=== PATIENT | male | born 1960 | race Caucasian/White ===

== ENCOUNTER 2016-08-11 21:05 | Inpatient (IN) | payer MEDICAID ==
[2016-08-11 21:33] LABS: % IMMATURE GRANULYOCYTES 0.3 % (0.0-1.1); ABSOLUTE IMMATURE GRANULOCYTES 0.03 10^3/uL (0.00-0.10); ADD DIFF? NO; ADD MORPH? NO; ADD SCAN? NO; ATYPICAL LYMPHOCYTE FLAG 20 (0-99); FRAGMENT RBC FLAG 0 (0-99); HEMATOCRIT 51.9 % (40.0-51.0); HEMOGLOBIN 17.7 g/dL (13.7-17.5); LEFT SHIFT FLG 0 (0-99); LIPEMIA HEMOLYSIS FLAG 90 (0-99); MEAN CELL HEMOGLOBIN 32.8 pg (27.9-34.1); MEAN CELL HEMOGLOBIN CONCENTR. 34.1 g/dL (32.4-36.7); MEAN CELL VOLUME 96.3 fL (81.5-99.8); MEAN PLATELET VOLUME 9.7 fL (8.7-11.7); PLATELET CLUMPS FLAG 0 (0-99); PLATELET COUNT 76 10^3/uL (150-400); RED BLOOD CELL COUNT 5.39 10^6/uL (4.40-6.38); RED CELL DISTRIBUTION WIDTH 13.1 % (11.5-15.2)
--- NOTE | 2016-08-11 22:03 | EDPHY ---
H & P Stated Complaint: SOB, cough, difficulty breathing Time Seen by Provider: 08/11/16 21:50 HPI/ROS: Chief Complaint: Short of breath, cough HPI: 56-year-old male presenting with 2 weeks of cough and shortness of breath. He has also been having some difficulty swallowing solids but is 0 tolerating liquids. He has had some subjective fevers and chills. Coughing yellow sputum. Increasingly short of breath and fatigue. Does not have a history of the same. Has history of smoking. No nausea or vomiting. No chest pain. No abdominal pain. Patient is ROS: 10 point Review of Systems is negative except as noted in the HPI. PMH: Chronic back pain secondary to lumbar cervical fractures Medications: Morphine Oxycodone Lyrica Amitriptyline Allergies: No known drug allergies Social History: Positive for smoking, daily alcohol, no recreational drug use Family History: non-contributory Physical Exam: Gen: Awake, Alert, uncomfortable appearing HEENT: Nose: no rhinorrhea Eyes: PERRLA, EOMI Mouth: Moist mucosa Neck: Supple, no JVD Chest: nontender, diffuse expiratory wheezing with right-sided crackles at the lung base Heart: S1, S2 normal, no murmur Abd: Soft, non-tender, no guarding Back: no CVA tenderness, no midline tenderness Ext: no edema, non-tender Skin: no rash Neuro: CN II-XII intact, Sensation grossly intact, Strength 5/5 in bilateral upper and lower extremities - Personal History Current Tetanus/Diphtheria Vaccine: Yes Current Tetanus Diphtheria and Acellular Pertussis (TDAP): Yes Tetanus Vaccine Date: 2014 - Medical/Surgical History Hx Asthma: No Hx Chronic Respiratory Disease: No Hx Diabetes: No Hx Cardiac Disease: No Hx Renal Disease: No Hx Cirrhosis: No Hx Alcoholism: No Hx HIV/AIDS: No Hx Splenectomy or Spleen Trauma: No Other PMH: chronic back and right hip pain, hypoglycemic - Social History Smoking Status: Current every day smoker Constitutional: Initial Vital Signs Temperature (C) 36.5 C 08/11/16 21:19 Heart Rate 98 08/11/16 21:19 Respiratory Rate 20 08/11/16 21:19 Blood Pressure 139/99 H 08/11/16 21:19 O2 Sat (%) 79 L 08/11/16 21:19 O2 Delivery Mode Nasal Cannula O2 (L/minute) 5 Allergies/Adverse Reactions: No Known Allergies Allergy (Verified 08/11/16 21:20) Home Medications: Medication Instructions Recorded Amoxicillin/Clavulanate Pot 875 mg PO BID #14 tab 04/06/15 [Augmentin 875Mg] AMITRIPTYLINE HCL [Amitriptyline 100 mg PO HS 08/22/15 100 mg] Cyclobenzaprine [Flexeril] 10 mg PO TID PRN 08/22/15 Lidocaine 5% [Lidoderm 5%] 2 ea TD DAILY 08/22/15 Pregabalin [LYRICA] 100 mg PO TID 08/22/15 morphINE SR [Ms Contin/Oramorph] 15 mg PO BID 08/22/15 oxyCODONE HCL [Roxicodone] 5 - 10 mg PO Q4 PRN 08/22/15 Medical Decision Making - Diagnostics Imaging Results: Imaging Impressions Chest X-Ray 08/11/16 21:23 Impression: Suspect early right middle lobe and right lower lobe pneumonia. Imaging: I viewed and interpreted images myself ED Course/Re-evaluation: 56-year-old male with a right lower lobe and right middle lobe infiltrate, oxygen saturation 75% on room air and does desaturation on supplemental oxygen when he falls asleep here. He has got will be admitted for IV antibiotics. Will give him DuoNeb here. I have discussed with Dr. Hampton, hospitalist. She will admit to her service for further evaluation - Data Points Laboratory Results: Laboratory Results 08/11/16 21:00 08/11/16 21:00 08/11/16 08/11/16 21:00 21:00 WBC 9.12 10^3/uL 10^3/uL (3.80-9.50) RBC 5.39 10^6/uL 10^6/uL (4.40-6.38) Hgb 17.7 g/dL H g/dL (13.7-17.5) Hct 51.9 % H % (40.0-51.0) MCV 96.3 fL fL (81.5-99.8) MCH 32.8 pg pg (27.9-34.1) MCHC 34.1 g/dL g/dL (32.4-36.7) RDW 13.1 % % (11.5-15.2) Plt Count 76 10^3/uL L 10^3/uL (150-400) MPV 9.7 fL fL (8.7-11.7) Neut % (Auto) 42.6 % % (39.3-74.2) Lymph % (Auto) 49.6 % H % (15.0-45.0) [place] % (Auto) 6.9 % % (4.5-13.0) Eos % (Auto) 0.4 % L % (0.6-7.6) Baso % (Auto) 0.2 % L % (0.3-1.7) Nucleat RBC Rel Count 0.0 % % (0.0-0.2) Absolute Neuts (auto) 3.88 10^3/uL 10^3/uL (1.70-6.50) Absolute Lymphs (auto) 4.52 10^3/uL H 10^3/uL (1.00-3.00) Absolute Monos (auto) 0.63 10^3/uL 10^3/uL (0.30-0.80) Absolute Eos (auto) 0.04 10^3/uL 10^3/uL (0.03-0.40) Absolute Basos (auto) 0.02 10^3/uL 10^3/uL (0.02-0.10) Absolute Nucleated RBC 0.00 10^3/uL 10^3/uL (0-0.01) Immature Gran % 0.3 % % (0.0-1.1) Immature Gran # 0.03 10^3/uL 10^3/uL (0.00-0.10) Sodium 141 mEq/L mEq/L (134-144) Potassium 4.2 mEq/L mEq/L (3.5-5.2) Chloride 102 mEq/L mEq/L (97-110) Carbon Dioxide 24 mEq/l mEq/l (22-31) Anion Gap 15 mEq/L mEq/L (8-16) BUN 10 mg/dL mg/dL (7-23) Creatinine 0.8 mg/dL mg/dL (0.7-1.3) Estimated GFR > 60 Glucose 152 mg/dL H mg/dL (70-100) Calcium 8.8 mg/dL mg/dL (8.5-10.4) Departure - Departure Disposition: [facility] Acute Clinical Impression: Pneumonia Condition: Fair Referrals: Itzel Bernal [Primary Care Provider] - As per Instructions
[2016-08-11 22:18] LABS: ANION GAP 15 mEq/L (8-16); CALCIUM 8.8 mg/dL (8.5-10.4); CARBON DIOXIDE 24 mEq/l (22-31); CHLORIDE 102 mEq/L (97-110); CREATININE 0.8 mg/dL (0.7-1.3); GLOMERULAR FILTRATION RATE > 60; GLUCOSE 152 mg/dL (70-100); POTASSIUM 4.2 mEq/L (3.5-5.2); SODIUM 141 mEq/L (134-144)
[2016-08-11] MEDS ORDERED: IPRATROPIUM/ALBUTEROL 3 ML DEYVIAL ONE (22:21)
[2016-08-11] MEDS ORDERED: AZITHROMYCIN 250 MG TAB PO ONE (22:27)
[2016-08-11] MEDS ORDERED: IPRATROPIUM/ALBUTEROL 3 ML DEYVIAL IH ONE (22:30)
[2016-08-11] MEDS ORDERED: NS 1,000 ML IV ONE (22:40)
[2016-08-11] MEDS ORDERED: LORazepam 2 MG/ML INJ ONE (23:21)
[2016-08-11] MEDS ORDERED: LORazepam 2 MG/ML INJ IVP ONE (23:25)
[2016-08-11] MEDS ORDERED: ACETAMINOPHEN 325 MG TAB PO PRN (23:30)
[2016-08-11] MEDS ORDERED: ONDANSETRON DISINTEGRATING 4 MG TAB PO PRN (23:30)
[2016-08-11] MEDS ORDERED: ONDANSETRON 4 MG/2 ML VIAL IVP PRN (23:30)
[2016-08-11] MEDS ORDERED: ALBUTEROL 3 ML DEYVIAL IH PRN (23:38)
[2016-08-11 23:59] LABS: ALANINE AMINOTRANSFERASE 102 IU/L (21-72); ALBUMIN 4.5 g/dL (3.5-5.0); ALKALINE PHOSPHATASE 144 IU/L (38-126); ASPARTATE AMINOTRANSFERASE 133 IU/L (17-59); BILIRUBIN,TOTAL 0.9 mg/dL (0.1-1.4); BILIRUBIN-CONJUGATED 0.7 mg/dL (0.0-0.5); BILIRUBIN-UNCONJUGATED 0.2 mg/dL (0.0-1.1); ETHANOL SERUM 292 mg/dL (0-10); TOTAL PROTEIN 7.7 g/dL (6.3-8.2)
[2016-08-12] MEDS ORDERED: LORazepam 2 MG/ML INJ IVP PRN (00:10)
--- NOTE | 2016-08-12 00:21 | PDGENHP ---
History and Physical - Chief Complaint shortness of breath - History of Present Illness Patient is a 56-year-old male with a history of chronic pain syndrome with chronic opioid dependency, tobacco use, alcohol use who presents to the ED with complaint of shortness of breath and cough. Patient states symptoms started about 2 weeks ago, with cough and occasional dyspnea on exertion. However over the last for 4 days his symptoms acutely worsened, he felt significantly dyspneic at rest, cough became more productive and he felt generalized fatigue. In addition he reported some subjective fever and chills, as well as occasional episodes of nausea and vomiting (Nonbilious/nonbloody). His friend checked in on him 3 days ago, saw that he didn't look well and recommended he go to a PMD. She again checked in on him today and found him in respiratory distress, stating he felt he unable to breath, so she called EMS and he was transported to the [facility] ED. On arrival to the ED, he was afebrile, hemodynamically stable, but saturating at 70% on room air. CXR revealed early RML pneumonia. Labs showed hemoconcentrated CBC, normal BMP, elevated lactic acid. He was cultured and initiated on ceftriaxone and azithromycin. Over the course of his ED stay he became more somnolent, especially after ativan administration, so BIPAP was initiated with improvement in oxygenation. History Information - Allergies/Home Medication List Allergies/Adverse Reactions: No Known Allergies Allergy (Verified 08/11/16 21:20) Home Medications: AMITRIPTYLINE HCL [Amitriptyline 100 mg] 100 mg PO HS 08/22/15 [Last Taken 08/20] Cyclobenzaprine [Flexeril] 10 mg PO TID PRN 08/22/15 [Last Taken Unknown] Lidocaine 5% [Lidoderm 5%] 2 ea TD DAILY 08/22/15 [Last Taken 08/21/15] Pregabalin [LYRICA] 100 mg PO TID 08/22/15 [Last Taken 08/21/15] morphINE SR [Ms Contin/Oramorph] 15 mg PO BID 08/22/15 [Last Taken 08/22/15] oxyCODONE HCL [Roxicodone] 5 - 10 mg PO Q4 PRN 08/22/15 [Last Taken 08/21/15] I have personally reviewed and updated: family history, medical history, social history, surgical history - Past Medical History Additional medical history: chronic back pain after trauma in 1995. 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 Review of Systems ROS: 10pt was reviewed & negative except for what was stated in HPI & below Physical Exam Temp Pulse Resp BP Pulse Ox 36.5 C 98 18 111/77 92 08/11/16 21:19 08/12/16 00:00 08/12/16 00:00 08/12/16 00:00 08/12/16 00:00 O2 (L/minute) 5 Constitutional: appears nourished, uncomfortable Eyes: PERRL, anicteric sclera, EOMI Ears, Nose, Mouth, Throat: hearing normal, ears appear normal, no oral mucosal ulcers, dry mucous membranes Cardiovascular: no murmur, rub, or gallop, pulses symmetric bilaterally, tachycardia, No JVD, No edema Peripheral Pulses: 2+: dorsalis-pedis (R), dorsalis-pedis (L) Respiratory: expiratory wheeze, inspiratory crackles, bronchial breath sounds Gastrointestinal: normoactive bowel sounds, soft, non-tender abdomen, no palpable masses, No guarding, No rebound Genitourinary: no bladder fullness, no bladder tenderness Skin: warm, normal color, no rashes or abrasions, no fluctuance, no induration, No mottled Musculoskeletal: full muscle strength, no muscle tenderness, normal joint ROM, no joint effusions Neurologic: AAOx3, sensation intact bilaterally, CN II-XII Intact, No weakness, No numbness, No facial droop Psychiatric: interacting appropriately, not anxious, not encephalopathic, thought process linear Lab Data & Imaging Review 08/11/16 21:00 08/11/16 21:00 WBC 9.12 10^3/uL (3.80-9.50) 08/11/16 21:00 RBC 5.39 10^6/uL (4.40-6.38) 08/11/16 21:00 Hgb 17.7 g/dL (13.7-17.5) H 08/11/16 21:00 Hct 51.9 % (40.0-51.0) H 08/11/16 21:00 MCV 96.3 fL (81.5-99.8) 08/11/16 21:00 MCH 32.8 pg (27.9-34.1) 08/11/16 21:00 MCHC 34.1 g/dL (32.4-36.7) 08/11/16 21:00 RDW 13.1 % (11.5-15.2) 08/11/16 21:00 Plt Count 76 10^3/uL (150-400) L 08/11/16 21:00 MPV 9.7 fL (8.7-11.7) 08/11/16 21:00 Neut % (Auto) 42.6 % (39.3-74.2) 08/11/16 21:00 Lymph % (Auto) 49.6 % (15.0-45.0) H 08/11/16 21:00 [place] % (Auto) 6.9 % (4.5-13.0) 08/11/16 21:00 Eos % (Auto) 0.4 % (0.6-7.6) L 08/11/16 21:00 Baso % (Auto) 0.2 % (0.3-1.7) L 08/11/16 21:00 Nucleat RBC Rel Count 0.0 % (0.0-0.2) 08/11/16 21:00 Absolute Neuts (auto) 3.88 10^3/uL (1.70-6.50) 08/11/16 21:00 Absolute Lymphs (auto) 4.52 10^3/uL (1.00-3.00) H 08/11/16 21:00 Absolute Monos (auto) 0.63 10^3/uL (0.30-0.80) 08/11/16 21:00 Absolute Eos (auto) 0.04 10^3/uL (0.03-0.40) 08/11/16 21:00 Absolute Basos (auto) 0.02 10^3/uL (0.02-0.10) 08/11/16 21:00 Absolute Nucleated RBC 0.00 10^3/uL (0-0.01) 08/11/16 21:00 Immature Gran % 0.3 % (0.0-1.1) 08/11/16 21:00 Immature Gran # 0.03 10^3/uL (0.00-0.10) 08/11/16 21:00 VBG Lactic Acid 2.2 mmol/L (0.7-2.1) H 08/11/16 23:40 Sodium 141 mEq/L (134-144) 08/11/16 21:00 Potassium 4.2 mEq/L (3.5-5.2) 08/11/16 21:00 Chloride 102 mEq/L (97-110) 08/11/16 21:00 Carbon Dioxide 24 mEq/l (22-31) 08/11/16 21:00 Anion Gap 15 mEq/L (8-16) 08/11/16 21:00 BUN 10 mg/dL (7-23) 08/11/16 21:00 Creatinine 0.8 mg/dL (0.7-1.3) 08/11/16 21:00 Estimated GFR > 60 08/11/16 21:00 Glucose 152 mg/dL (70-100) H 08/11/16 21:00 Calcium 8.8 mg/dL (8.5-10.4) 08/11/16 21:00 Total Bilirubin 0.9 mg/dL (0.1-1.4) 08/11/16 21:00 Conjugated Bilirubin 0.7 mg/dL (0.0-0.5) H 08/11/16 21:00 Unconjugated Bilirubin 0.2 mg/dL (0.0-1.1) 08/11/16 21:00 AST 133 IU/L (17-59) H 08/11/16 21:00 ALT 102 IU/L (21-72) H 08/11/16 21:00 Alkaline Phosphatase 144 IU/L (38-126) H 08/11/16 21:00 Total Protein 7.7 g/dL (6.3-8.2) 08/11/16 21:00 Albumin 4.5 g/dL (3.5-5.0) 08/11/16 21:00 Ethyl Alcohol 292 mg/dL (0-10) H 08/11/16 21:00 Visualized and Interpreted Chest x-ray results: Yes Chest X-Ray results: infiltrate (in right middle lobe) Assessment & Plan Assessment: patient is a 56-year-old male with a history of chronic pain for which he is on chronic opioids, active tobacco use, heavy alcohol use, presents to the ED with 2 weeks of worsening cough and dyspnea. Evaluation reveals acute hypoxic respiratory failure likely due to right middle lobe community-acquired pneumonia. Plan: # acute hypoxic respiratory failure Likely provoked by acute pneumonia, however, underlying COPD exacerbation may also be contributing. Respiratory drive has also been depressed by benzo administration for treatment of etoh withdrawal symptoms. Oxygenation has stabilized with BIPAP supplementation. Will continue BIPAP, continue duonebs/ albuterol prn, start IV steroids and continue pneumonia treatment. Will check an AM abg to assess bipap response. # acute pneumonia CXR and patient's symptoms appear consistent with a community acquired pneumonia , however given patient's history of polysubstance use and the location of infiltrate, aspiration pneumonia is also a possibility. Will also check rapid flu swab, sputum culture. Cont Ertapenem and azithromycin. # chronic alcohol use Patient was not entirely forthcoming about the quantity of alcohol he uses daily , however, his friend at bedside informs me he has been recently trying to cut back and had been showing signs of withdrawal earlier in the day. ETOH level on presentation is 290 and he does appear tremulous and tachycardic. However, he has become significantly sedated with ativan 1 mg. Will monitor ciwa scores, dose ativan cautiously prn and supplement thiamine/folate/mvn. # transaminitis Likely related to acute on chronic alcohol use. However, will check hepatitis panel, abdominal US and continue to trend. # chronic pain with opioid dependence Patient reports chronic pain from a trauma in the distant past. He is currently prescribed long and short-acting opioids, as well as muscle relaxants and lyrica. Will need to confirm his home regimen, monitor for pain and dose as needed, pending respiratory status. # dispo: admit to inpatient service for > 2 [place] stay #gen: regular diet DVT ppx: lovenox Full code
[2016-08-12] MEDS: NICOTINE 14 MG/24 HR PATCH TD SCH ×2 (01:10→08:44)
[2016-08-12 01:55] LABS: PHENCYCLIDINE URINE BCH < 6 ng/ml (NEGATIVE); PHENCYCLIDINE URINE BCH NEGATIVE (NEGATIVE)
[2016-08-12 02:08] LABS: TETRAHYDROCANNABINOL URINE 356 ng/mL (NEGATIVE)
[2016-08-12 03:34] LABS: COLOR AMBER; LEUKOCYTE ESTERASE,URINE NEGATIVE (NEGATIVE); NITRITE,URINE NEGATIVE (NEGATIVE)
[2016-08-12 03:45] LABS: MUCUS 2+ /lpf (NONE-1+)
[2016-08-12] MEDS: methylPREDNISolone SOD SUCC 125 MG/2 ML VIAL IVP SCH ×3 (03:59→12:49)
[2016-08-12 04:14] LABS: ANION GAP 11 mEq/L (8-16); CALCIUM 8.3 mg/dL (8.5-10.4); CARBON DIOXIDE 24 mEq/l (22-31); CHLORIDE 106 mEq/L (97-110); CREATININE 0.7 mg/dL (0.7-1.3); GLOMERULAR FILTRATION RATE > 60; GLUCOSE 154 mg/dL (70-100); POTASSIUM 4.9 mEq/L (3.5-5.2); SODIUM 141 mEq/L (134-144)
[2016-08-12 04:25] LABS: TROPONIN I < 0.012 ng/mL (0-0.034)
[2016-08-12] MEDS: NS 1,000 ML IV SCH ×2 (04:46→14:55)
[2016-08-12 04:53] LABS: BASE EXCESS -2.2 mEq/L (-2.5-2.5); BICARBONATE 23 mEq/L (22-26); MEASURED OXYGEN SATURATION 94 % (92-95); PCO2 43 mmHg (34-38); PO2 77 mmHg (65-75); TCO2 24 mEq/L (23-27)
[2016-08-12 04:54] LABS: O2 CONCENTRATIION 40 % (0-100); P/F RATIO 193 RATIO
[2016-08-12 04:55] LABS: BIPAP YES
[2016-08-12] MEDS: IPRATROPIUM/ALBUTEROL 3 ML DEYVIAL IH SCH ×4 (04:56→20:40)
[2016-08-12] MEDS: chlordiazePOXIDE 25 MG CAP PO PRN ×2 (05:41→15:02)
[2016-08-12 05:48] LABS: % IMMATURE GRANULYOCYTES 0.5 % (0.0-1.1); ABSOLUTE IMMATURE GRANULOCYTES 0.02 10^3/uL (0.00-0.10); ADD DIFF? NO; ADD MORPH? NO; ADD SCAN? NO; ATYPICAL LYMPHOCYTE FLAG 0 (0-99); FRAGMENT RBC FLAG 0 (0-99); HEMATOCRIT 47.2 % (40.0-51.0); HEMOGLOBIN 15.9 g/dL (13.7-17.5); LEFT SHIFT FLG 0 (0-99); LIPEMIA HEMOLYSIS FLAG 80 (0-99); MEAN CELL HEMOGLOBIN 32.1 pg (27.9-34.1); MEAN CELL HEMOGLOBIN CONCENTR. 33.7 g/dL (32.4-36.7); MEAN CELL VOLUME 95.2 fL (81.5-99.8); MEAN PLATELET VOLUME 8.8 fL (8.7-11.7); PLATELET CLUMPS FLAG 10 (0-99); PLATELET COUNT 54 10^3/uL (150-400); RED BLOOD CELL COUNT 4.96 10^6/uL (4.40-6.38); RED CELL DISTRIBUTION WIDTH 12.9 % (11.5-15.2)
[2016-08-12 05:53] LABS: ALANINE AMINOTRANSFERASE 95 IU/L (21-72); ALBUMIN 4.1 g/dL (3.5-5.0); ALKALINE PHOSPHATASE 127 IU/L (38-126); ANION GAP 13 mEq/L (8-16); ASPARTATE AMINOTRANSFERASE 133 IU/L (17-59); BILIRUBIN,TOTAL 0.7 mg/dL (0.1-1.4); CALCIUM 8.3 mg/dL (8.5-10.4); CARBON DIOXIDE 24 mEq/l (22-31); CHLORIDE 106 mEq/L (97-110); CREATININE 0.7 mg/dL (0.7-1.3); GLOMERULAR FILTRATION RATE > 60; GLUCOSE 155 mg/dL (70-100); MAGNESIUM 1.4 mg/dL (1.6-2.3); POTASSIUM 4.8 mEq/L (3.5-5.2); SODIUM 143 mEq/L (134-144); TOTAL PROTEIN 6.9 g/dL (6.3-8.2)
[2016-08-12] MEDS: ERTAPENEM 1 GM in NS 100 ML IV SCH (08:44)
[2016-08-12] MEDS: MULTIVITAMINS 1 EACH TAB PO SCH (08:44)
[2016-08-12] MEDS: LORazepam 2 MG/ML INJ IVP PRN ×2 (08:44→17:25)
[2016-08-12] MEDS: AZITHROMYCIN IV 500 MG in D5W 250 ML IV SCH (08:44)
[2016-08-12] MEDS: FOLIC ACID 1 MG TAB PO SCH (08:44)
[2016-08-12] MEDS: THIAMINE HCL 100 MG TAB PO SCH (08:44)
[2016-08-12] MEDS ORDERED: ENOXAPARIN 40 MG/0.4 ML SYR SC SCH (09:00)
[2016-08-12] MEDS ORDERED: OXYCODONE IR PO PRN (09:50)
[2016-08-12] MEDS: VODKA 50 ML BOTTLE PO SCH ×3 (10:21→21:07)
[2016-08-12] MEDS: morphINE SR 30 MG TAB PO SCH ×2 (10:21→21:47)
[2016-08-12] MEDS: LIDOCAINE 5% 1 EA PATCH TD SCH (10:21)
--- NOTE | 2016-08-12 10:31 | HOSPPROG ---
Hospitalist Progress Note Assessment/Plan: DIAGNOSES: # ACUTE HYPOXEMIC RESP FAILURE # CAP # COPD EXACERBATION # ACUTE ALCOHOL WITHDRAWAL / ALCOHOLISM / SUSPECT VITAMIN DEFICIENCIES # MILD ALCOHOLIC HEPATITIS WITH NORMAL BILIRUBIN # CHRONIC PRESCRIBED NARCOTIC DEPENDENCE # ONGOING TOBACCO USE Overall stable from resp standpoint. Will need ongoing antibiotics and resp treatment. I have discussed EtOH at length with him, he does not feel he would be successful at quitting. It will therefore not be worth putting him thru the risks of withdrawal here. PLANS: -continue abx, steroids, bronchodilators -increase acivity as able -as he will not quit drinking, will begin to give him alcohol; for now continue CIWA scoring and benzo's until stabilized -thiamine -nicotine patch -continue his usual pain meds -I have discussed with him recommendations and options for stopping etoh, tobacco seen on multidisciplinary ICU rounds today Discussed in detail with Dr. Cornel Ramos SUBJECTIVE: Feels very anxious and tremulous, weak and tired No pain Mild shortness of breath still with some cough OBJECTIVE Vitals reviewed: overall stable without fever [employer], my review: sinus rhythm Exam: alert oriented moderately anxious, quite tremulous, not confused or hallucinating, pleasant and interacts normally skin warm dry color ok no jaundice resps mildly labored lungs severely diminished BSs heart regular abd soft nondistended nontender, bowel sounds present limbs warm, no edema iv site ok Objective: Vital Signs Temp Pulse Resp BP Pulse Ox 37.1 C 93 14 126/81 H 95 08/12/16 08:00 08/12/16 08:00 08/12/16 08:00 08/12/16 08:00 08/12/16 08:00 Laboratory Results 08/12/16 05:30 08/12/16 03:50 08/11/16 08/12/16 08/13/16 06:59 06:59 06:59 Intake Total 1569 Output Total 350 300 Balance 1219 -300 - Time Spent With Patient Time Spent with Patient: greater than 35 minutes Time Spent with Patient: Greater than 35 minutes spent on this patients care, greater than 50% of time spent counseling, educating, and coordinating care regarding the above mentioned plan. ICD10 Worksheet Patient Problems: Problems Problem Status Onset Pneumonia Acute
--- NOTE | 2016-08-12 13:11 | GCON ---
[f rep st] CONSULTATION PULMONARY CRITICAL CARE CONSULTATION DATE OF CONSULTATION: 08/12/2016 REASON FOR CONSULTATION: Pneumonia, alcohol withdrawal. HISTORY: The patient is a 56-year-old gentleman. He has a history of chronic alcohol abuse as well as tobacco abuse. He also has chronic pain syndrome and takes opiates. 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 Has 2 vans/bu ses that he travels with and lives out of these. He is based between [place] and [facility] y his report. He was admitted yesterday secondary to weakness. In the 3 or 4 days prior to admissi on, he had subjective fevers and chills, nausea and vomiting. He became more short of breath and we igor. He was unable to eat much. He drinks a pint of vodka a day, but with his symptoms, he was dr inking about half this amount. A friend found him yesterday weaker, more short of breath. EMS was called, and he was taken to the emergency department. Saturations on admission to the ED were appro priately in the 70s. Initial x-ray was underwhelming, but an early right middle lobe pneumonia coul d not be excluded. There was evidence of volume depletion. He was given Ativan in the ED with decr eased mental status. He was placed on BiPAP for a short time and admitted to the intensive care [facility]. PAST MEDICAL HISTORY: Remarkable for chronic pain. He apparently went into a ravine while riding a horse and was injured about 10 years ago and has had significant pain since. He is on chronic narc otics for this. He has a history of ongoing alcohol abuse as well as tobacco abuse. MEDICATIONS: Include sustained release morphine, Lyrica, p.r.n. oxycodone, Lidoderm patch, and carrie riptyline. SOCIAL HISTORY: He says he travels and lives out of his bus/vans. 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 He is initially from [place]. A previous and children are there. He has 1 sister. He drinks at least a pint of vodka per day, smokes a half-pack of cigarettes or more per day. Drug us e is denied. His primary care physician is Itzel Bernal in [place]. FAMILY HISTORY: Noncontributory. REVIEW OF SYSTEMS: Ten-point review of systems is negative except as mentioned above. He denies se izures or previous alcohol withdrawal. He has been seen in our emergency department dating back to November 2014, never for alcohol-related issues. He did have nausea and vomiting, with bronchitis and had elevated liver function studies at that time, February 2015. There is no history of heart dise ase. He denies a history of pancreatitis or significant GI problems. He has had inhalers in the [facility] but does not use these. He does not have known asthma or COPD. He denies kidney disease, thromb oembolic disease, etc. He recently bruised his leg loading equipment into his bus. PHYSICAL EXAMINATION: GENERAL: A gentleman who has a significant tremor but is in no acute distres s. An oxy mask is in place at 7 L. Saturations are 95%. Blood pressure is 125/80, heart rate 85 w ith sinus rhythm on the monitor. He is afebrile. Respiratory rate is 18. HEENT: Unremarkable for lymphadenopathy or thyromegaly. The throat is nontender. There is no evidence of pharyngitis. Th ere is no jugular venous distention. CHEST: Reveals somewhat distant breath sounds with bibasilar rales, fairly fine. There are no rhonchi, no significant wheezes at this time. HEART: Regular in rate and rhythm. There is a soft systolic murmur, no gallop. ABDOMEN: Soft, nontender. Bowel iqra nds are present. EXTREMITIES: Unremarkable for edema, cords, or tenderness. There is a bruise on the anterior right wolf. Otherwise, the skin is intact, without lesions or rash. NEUROLOGIC: Remar kable for a very marked, coarse tremor. Neurologic examination is otherwise nonfocal. He reports eq ual sensation to touch bilaterally. He is oriented x3 but somewhat agitated appearing and perhaps s lightly confused. DATABASE: Chest x-rays were reviewed. There may be some mild bibasilar infiltrates with these bein g more noticeable on the followup film compared to the admission film. Laboratory: White blood cell count is 4400, down from 9000 maximum. Platelets are 54,000 with a ma ximum of 76,000. Hematocrit is 47, down from 52. Arterial blood gas early this morning showed a pH of 7.35, pCO2 43, and PO2 77. He was on BiPAP at that time. Lactic acid was 2.2. Basic metabolic panel is within normal limits with the exception of a mildly elevated glucose of 155. Magnesium is low at 1.4, phosphorus normal. Bilirubin is normal. Liver function studies are mildly elevated wi th an AST of 133 and an ALT of 95. Lipase was elevated on admission at 783. Troponins were negativ e. Albumin is 4.1. Urinalysis was unremarkable. Urine tox screen was positive for opiates, THC. Blood alcohol was 292 on admission. Influenza A, b by PCR were negative. ASSESSMENT: 1. Alcohol withdrawal. This is secondary to chronic alcohol abuse. He was intoxicated on admissio n with a high blood alcohol of almost 300. Nausea and vomiting were probably secondary to alcoholic gastritis as well as mild pancreatitis. CIWA score remains high. He is on the CIWA protocol, on A tivan, not requiring Precedex. 2. Pneumonia. He appears to have bibasilar vague infiltrates associated with rales and hypoxia on admission. He may have an exacerbation of underlying COPD, but this does not appear to be very talat re at this time. He is on steroids and bronchodilator therapy as well as appropriate antibiotics. It is possible that this pneumonia represents an aspiration pneumonia/pneumonitis. He is on Invanz as well as azithromycin for atypical coverage. 3. Chronic obstructive pulmonary disease exacerbation. Please see the comments above, probably rel atively mild. He likely has mild underlying COPD secondary to chronic tobacco abuse of a half-pack of cigarettes or more per day. 4. History of chronic back pain secondary to injury, chronic narcotic therapy. 5. Deep vein thrombosis prophylaxis. Currently none. Lovenox will be added to his regimen. 6. Gastrointestinal prophylaxis. Currently none. A PPI will be added intravenously. PLAN AND RECOMMENDATIONS: The patient will be kept in the intensive care unit for now and monitored for his alcohol withdrawal as well as his pulmonary status. Steroids can be reduced. Bronchodilat or therapy will be continued. Antibiotics will be continued. He will be kept on the CIWA protocol and given Ativan as needed. If withdrawal escalates, Precedex could be used. He will be allowed to have vodka as he has no intentions of stopping drinking per his history. A nicotine patch will be given. Laboratory and chest x-ray will be followed. Further plans and recommendations will be made based on his progress over the next 12-24 hours. /[id number]/MODL
[2016-08-12] MEDS: PANTOPRAZOLE SODIUM 40 MG in NS 100 ML IV SCH (13:13)
[2016-08-12] MEDS: ENOXAPARIN 40 MG/0.4 ML SYR SC SCH (14:54)
[2016-08-12] MEDS: oxyCODONE IR 5 MG TAB PO PRN ×2 (15:06→19:50)
[2016-08-12] MEDS: PREGABALIN 100 MG CAP PO SCH ×2 (16:05→21:07)
[2016-08-12] MEDS ORDERED: PROTOCOL CALCIUM 1 DOSE IV PRN (16:57)
[2016-08-12] MEDS ORDERED: PROTOCOL K PHOSPHATE 1 DOSE IV PRN (16:57)
[2016-08-12] MEDS ORDERED: PROTOCOL POTASSIUM 1 DOSE MISC PRN (16:57)
[2016-08-12] MEDS ORDERED: PROTOCOL MAGNESIUM 1 DOSE IV PRN (16:57)
[2016-08-12] MEDS ORDERED: MAGNESIUM SULF 2 GM/WATER 50 ML IV ONE (17:08)
[2016-08-12] MEDS ORDERED: LORazepam 1 MG TAB ONE (17:13)
[2016-08-12] MEDS ORDERED: MAGNESIUM SULF 2 GM/WATER 50 ML BAG IV ONE (17:14)
[2016-08-12] MEDS ORDERED: AMITRIPTYLINE HCL 100 MG TAB PO SCH (21:00)
[2016-08-12] MEDS: PATCH REMOVAL 1 EA PATCH TD SCH (21:07)
[2016-08-13] MEDS: NS 1,000 ML IV SCH ×3 (00:09→18:11)
[2016-08-13] MEDS: chlordiazePOXIDE 25 MG CAP PO PRN ×4 (00:26→20:28)
[2016-08-13] MEDS: methylPREDNISolone SOD SUCC 125 MG/2 ML VIAL IVP SCH (00:27)
[2016-08-13 00:28] LABS: POTASSIUM 3.9 mEq/L (3.5-5.2)
[2016-08-13] MEDS: LORazepam 2 MG/ML INJ IVP PRN ×5 (01:51→13:04)
[2016-08-13] MEDS: oxyCODONE IR 5 MG TAB PO PRN (01:51)
[2016-08-13] MEDS: HALOPERIDOL LACT 5 MG/ML INJ IVP PRN (03:17)
[2016-08-13 05:59] LABS: IONIZED CALCIUM 1.15 MMOL/L (1.12-1.30)
[2016-08-13] MEDS: IPRATROPIUM/ALBUTEROL 3 ML DEYVIAL IH SCH ×4 (06:05→20:18)
[2016-08-13 06:09] LABS: % IMMATURE GRANULYOCYTES 0.5 % (0.0-1.1); ABSOLUTE IMMATURE GRANULOCYTES 0.05 10^3/uL (0.00-0.10); ADD DIFF? NO; ADD MORPH? NO; ADD SCAN? NO; ATYPICAL LYMPHOCYTE FLAG 0 (0-99); FRAGMENT RBC FLAG 0 (0-99); HEMATOCRIT 47.2 % (40.0-51.0); HEMOGLOBIN 15.9 g/dL (13.7-17.5); LEFT SHIFT FLG 50 (0-99); LIPEMIA HEMOLYSIS FLAG 80 (0-99); MEAN CELL HEMOGLOBIN 32.9 pg (27.9-34.1); MEAN CELL HEMOGLOBIN CONCENTR. 33.7 g/dL (32.4-36.7); MEAN CELL VOLUME 97.5 fL (81.5-99.8); MEAN PLATELET VOLUME 10.4 fL (8.7-11.7); PLATELET CLUMPS FLAG 30 (0-99); RED BLOOD CELL COUNT 4.84 10^6/uL (4.40-6.38); RED CELL DISTRIBUTION WIDTH 12.7 % (11.5-15.2)
[2016-08-13 06:12] LABS: PLATELET COUNT 46 10^3/uL (150-400)
[2016-08-13] MEDS: VODKA 50 ML BOTTLE PO SCH ×5 (06:14→22:28)
[2016-08-13 06:17] LABS: ALANINE AMINOTRANSFERASE 66 IU/L (21-72); ALBUMIN 3.9 g/dL (3.5-5.0); ALKALINE PHOSPHATASE 111 IU/L (38-126); AMYLASE 31 IU/L (30-110); ANION GAP 10 mEq/L (8-16); ASPARTATE AMINOTRANSFERASE 62 IU/L (17-59); BILIRUBIN,TOTAL 1.2 mg/dL (0.1-1.4); CALCIUM 8.9 mg/dL (8.5-10.4); CARBON DIOXIDE 27 mEq/l (22-31); CHLORIDE 101 mEq/L (97-110); CREATININE 0.6 mg/dL (0.7-1.3); GLOMERULAR FILTRATION RATE > 60; GLUCOSE 159 mg/dL (70-100); MAGNESIUM 1.9 mg/dL (1.6-2.3); POTASSIUM 4.3 mEq/L (3.5-5.2); SODIUM 138 mEq/L (134-144); TOTAL PROTEIN 6.9 g/dL (6.3-8.2)
[2016-08-13 06:32] LABS: PLATELET ESTIMATE DECREASED (ADEQ)
[2016-08-13] MEDS: PANTOPRAZOLE SODIUM 40 MG in NS 100 ML IV SCH (09:26)
[2016-08-13] MEDS: ERTAPENEM 1 GM in NS 100 ML IV SCH (09:36)
--- NOTE | 2016-08-13 09:42 | PDINTPN ---
Softball Umpire Progress Note Assessment/Plan: Assessment/Plan: * Respiratory failure-stable on minimal supplemental O2 -wean as tolerated * Pneumonia-continue current antibiotics * Alcohol withdrawal-markedly agitated last night requiring sedation. Currently up in a chair but significantly somnolent. -may need increased alcohol intake * Chronic obstructive pulmonary disease-stable. -continue nebs * Chronic back pain Subjective: Up in chair. Somnolent but weakly arousable. Objective: Vital Signs Temp Pulse Resp BP Pulse Ox 36.3 C 60 9 L 115/74 98 08/13/16 07:34 08/13/16 07:34 08/13/16 07:34 08/13/16 07:34 08/13/16 07:34 Laboratory Results 08/13/16 05:45 08/13/16 05:45 08/12/16 08/13/16 08/14/16 05:59 05:59 05:59 Intake Total 1569 2074 1700 Output Total 200 1700 Balance 9357 093 1517 Chest [id number] by myself. Cardiac silhouette appears normal. Subtle left lower lobe infiltrate. Physical Exam - Physical Exam General Appearance: other (Sedated), No alert EENT: PERRL/EOMI, normal ENT inspection Neck: non-tender, full range of motion, supple, normal inspection Respiratory: crackles (Few basilar), prolonged expiration, No respiratory distress, No wheezing Cardiac/Chest: normal peripheral pulses, regular rate, rhythm Peripheral Pulses: 2+: carotid (R), carotid (L), femoral (R), femoral (L), dorsalis-pedis (R), dorsalis-pedis (L) Abdomen: normal bowel sounds, non-tender, soft Male Genitalia: deferred Rectal: deferred Skin: normal color, warm/dry Extremities: normal range of motion, non-tender, normal inspection, normal capillary refill Neuro/Psych: No alert ICD10 Worksheet Patient Problems: Problems Problem Status Onset Pneumonia Acute
--- NOTE | 2016-08-13 10:09 | HOSPPROG ---
Hospitalist Progress Note Assessment/Plan: DIAGNOSES: # ACUTE HYPOXEMIC RESP FAILURE # CAP # COPD EXACERBATION # ACUTE ALCOHOL WITHDRAWAL / ALCOHOLISM / SUSPECT VITAMIN DEFICIENCIES # MILD ALCOHOLIC HEPATITIS WITH NORMAL BILIRUBIN # CHRONIC PRESCRIBED NARCOTIC DEPENDENCE # ONGOING TOBACCO USE Overall stable from resp standpoint. Will need ongoing antibiotics and resp treatment. I have discussed EtOH at length with him, he does not feel he would be successful at quitting. It will therefore not be worth putting him thru the risks of withdrawal here. PLANS: -continue abx, steroids, bronchodilators -increase acivity as able -as he will not quit drinking, will begin to give him alcohol; for now continue CIWA scoring and benzo's until stabilized -thiamine -nicotine patch -continue his usual pain meds -I have discussed with him recommendations and options for stopping etoh, tobacco seen on multidisciplinary ICU rounds today Discussed in detail with Dr. Cornel Ramos SUBJECTIVE: Feels very anxious and tremulous, weak and tired No pain Mild shortness of breath still with some cough OBJECTIVE Vitals reviewed: overall stable without fever Secret Code Expert, my review: sinus rhythm Exam: alert oriented moderately anxious, quite tremulous, not confused or hallucinating, pleasant and interacts normally skin warm dry color ok no jaundice resps mildly labored lungs severely diminished BSs heart regular abd soft nondistended nontender, bowel sounds present limbs warm, no edema iv site ok Objective: Vital Signs Temp Pulse Resp BP Pulse Ox 36.3 C 60 9 L 115/74 98 08/13/16 07:34 08/13/16 07:34 08/13/16 07:34 08/13/16 07:34 08/13/16 07:34 Laboratory Results 08/13/16 05:45 08/13/16 05:45 08/12/16 08/13/16 08/14/16 06:59 06:59 06:59 Intake Total 1569 3774 Output Total 350 1550 300 Balance 1219 2224 -300 ICD10 Worksheet Patient Problems: Problems Problem Status Onset Pneumonia Acute
--- NOTE | 2016-08-13 10:40 | HOSPPROG ---
Hospitalist Progress Note Assessment/Plan: DIAGNOSES: # ACUTE HYPOXEMIC RESP FAILURE # CAP # COPD EXACERBATION # ACUTE ALCOHOL WITHDRAWAL, SEVERE / ALCOHOLISM / SUSPECT VITAMIN DEFICIENCIES # MILD ALCOHOLIC HEPATITIS WITH NORMAL BILIRUBIN # CHRONIC PRESCRIBED NARCOTIC DEPENDENCE # ONGOING TOBACCO USE Overall stable from resp standpoint. Will need ongoing antibiotics and resp treatment. Due to the patient's feeling that he would not be successful at quitting drinking, it has been our plan to not have him go through withdrawal and have him continue to drink here. He had stated he was only drinking a pt of liquor per day and we were giving him vodka on a scheduled basis a few times a day but this clearly along with his Ativan was not enough to prevent more severe withdrawal. At this point will try and continue giving him alcohol and will increase the frequency but clearly will need to monitor him closely while were treating his respiratory infection and treat him with additional medications as needed. PLANS: -continue alcohol qid, CIWA scores and additional meds as needed -continue abx, steroids, bronchodilators -increase acivity as able -thiamine -nicotine patch -continue his usual pain meds -DVT prophylaxis, will hold lovenox at present due to low platelet count -I have discussed with him recommendations and options for stopping etoh, tobacco seen on multidisciplinary ICU rounds today Discussed in detail with Dr. Salty Jaramillo SUBJECTIVE: During the night the patient became severely agitated with increasing tremors and tachycardia, confusion and delusions consistent with worsening alcohol withdrawal despite him getting 3 shots of vodka and several doses of Ativan during the day yesterday. He was given some Haldol and Ativan during the night and subsequently slept through the night and is still sleeping now. I am able to arouse him enough that he does speak to me he is quite somnolent and still disoriented. He is not currently tremulous. I am not really able to assess physical symptoms with him right now. OBJECTIVE Vitals reviewed: Tachycardia during the night but now pulses normal after treating his withdrawal aggressively Disk Operator, my review: sinus rhythm Exam: Sedated but arousable, disoriented, answers a couple of questions but not really conversant all beyond that Currently no tremor skin warm dry color ok no jaundice resps relaxed lungs severely diminished BSs heart regular abd soft nondistended nontender, bowel sounds present limbs warm, no edema iv site ok Objective: Vital Signs Temp Pulse Resp BP Pulse Ox 36.3 C 60 9 L 115/74 98 08/13/16 07:34 08/13/16 07:34 08/13/16 07:34 08/13/16 07:34 08/13/16 07:34 Laboratory Results 08/13/16 05:45 08/13/16 05:45 08/12/16 08/13/16 08/14/16 06:59 06:59 06:59 Intake Total 1569 3774 Output Total 350 1550 425 Balance 1219 2224 -425 ICD10 Worksheet Patient Problems: Problems Problem Status Onset Pneumonia Acute
[2016-08-13] MEDS: AZITHROMYCIN IV 500 MG in D5W 250 ML IV SCH (10:42)
[2016-08-13] MEDS: ENOXAPARIN 40 MG/0.4 ML SYR SC SCH (10:46)
[2016-08-13] MEDS: PREGABALIN 100 MG CAP PO SCH ×3 (11:24→21:09)
[2016-08-13] MEDS: NICOTINE 14 MG/24 HR PATCH TD SCH (11:56)
[2016-08-13] MEDS: LIDOCAINE 5% 1 EA PATCH TD SCH (11:57)
[2016-08-13] MEDS: morphINE SR 30 MG TAB PO SCH ×2 (12:07→20:28)
[2016-08-13] MEDS: predniSONE 20 MG TAB PO SCH (12:13)
[2016-08-13] MEDS: MULTIVITAMINS 1 EACH TAB PO SCH (14:08)
[2016-08-13] MEDS: FOLIC ACID 1 MG TAB PO SCH (14:08)
[2016-08-13] MEDS: THIAMINE HCL 100 MG TAB PO SCH (14:09)
[2016-08-13] MEDS: AMITRIPTYLINE HCL 50 MG TAB PO SCH (20:26)
[2016-08-13] MEDS: PATCH REMOVAL 1 EA PATCH TD SCH (20:28)
[2016-08-13] MEDS: THIAMINE HCL 500 MG in NS 100 ML IV SCH (20:43)
[2016-08-13] MEDS ORDERED: BENZONATATE 100 MG CAP PO PRN (22:40)
[2016-08-14] MEDS: LORazepam 2 MG/ML INJ IVP PRN ×2 (00:08→05:07)
[2016-08-14] MEDS: HALOPERIDOL LACT 5 MG/ML INJ IVP PRN (03:29)
[2016-08-14] MEDS: VODKA 50 ML BOTTLE PO SCH (04:03)
[2016-08-14] MEDS: oxyCODONE IR 5 MG TAB PO PRN (04:04)
[2016-08-14] MEDS: DEXMEDETOMIDINE HCL 400 MCG in NS 100 ML IV SCH ×3 (04:51→21:55)
[2016-08-14 05:23] LABS: IONIZED CALCIUM 1.12 MMOL/L (1.12-1.30)
[2016-08-14 05:50] LABS: ANION GAP 11 mEq/L (8-16); CALCIUM 9.2 mg/dL (8.5-10.4); CARBON DIOXIDE 24 mEq/l (22-31); CHLORIDE 103 mEq/L (97-110); CREATININE 0.6 mg/dL (0.7-1.3); GLOMERULAR FILTRATION RATE > 60; GLUCOSE 162 mg/dL (70-100); MAGNESIUM 1.6 mg/dL (1.6-2.3); POTASSIUM 4.2 mEq/L (3.5-5.2); SODIUM 138 mEq/L (134-144)
[2016-08-14] MEDS: IPRATROPIUM/ALBUTEROL 3 ML DEYVIAL IH SCH ×4 (05:58→20:41)
[2016-08-14] MEDS: THIAMINE HCL 500 MG in NS 100 ML IV SCH ×2 (08:28→21:55)
--- NOTE | 2016-08-14 08:32 | PDINTPN ---
Saturator Progress Note Assessment/Plan: Assessment/Plan: * Respiratory failure-stable on minimal supplemental O2 -wean as tolerated * Pneumonia-continue current antibiotics * Alcohol withdrawal-sedated this morning and markedly somnolent * Chronic obstructive pulmonary disease-stable. -continue nebs * Chronic back pain Subjective: Somnolent, but arousable Objective: Vital Signs Temp Pulse Resp BP Pulse Ox 37.0 C 61 17 157/94 H 100 08/14/16 08:00 08/14/16 08:00 08/14/16 08:00 08/14/16 08:00 08/14/16 08:00 Laboratory Results 08/13/16 05:45 08/14/16 04:58 08/13/16 08/14/16 08/15/16 05:59 05:59 05:59 Intake Total 2074 4633 Output Total 1700 3025 Balance 374 1608 Physical Exam - Physical Exam General Appearance: other (Somnolent), No alert EENT: PERRL/EOMI, normal ENT inspection Neck: non-tender, full range of motion, supple, normal inspection Respiratory: crackles (Few), No respiratory distress, No wheezing Cardiac/Chest: normal peripheral pulses, regular rate, rhythm, systolic murmur Peripheral Pulses: 2+: carotid (R), carotid (L), femoral (R), femoral (L), dorsalis-pedis (R), dorsalis-pedis (L) Abdomen: normal bowel sounds, non-tender, soft Male Genitalia: deferred Rectal: deferred Skin: normal color, warm/dry Neuro/Psych: No alert ICD10 Worksheet Patient Problems: Problems Problem Status Onset Pneumonia Acute
[2016-08-14] MEDS: LIDOCAINE 5% 1 EA PATCH TD SCH (10:55)
[2016-08-14] MEDS: NICOTINE 14 MG/24 HR PATCH TD SCH (10:56)
[2016-08-14] MEDS: AZITHROMYCIN IV 500 MG in D5W 250 ML IV SCH (10:57)
[2016-08-14] MEDS: ERTAPENEM 1 GM in NS 100 ML IV SCH (10:57)
[2016-08-14] MEDS: PANTOPRAZOLE SODIUM 40 MG in NS 100 ML IV SCH (10:58)
[2016-08-14] MEDS: morphINE SR 30 MG TAB PO SCH (10:58)
[2016-08-14] MEDS: predniSONE 20 MG TAB PO SCH (10:59)
[2016-08-14] MEDS: PREGABALIN 100 MG CAP PO SCH ×3 (10:59→21:57)
--- NOTE | 2016-08-14 11:23 | HOSPPROG ---
Hospitalist Progress Note Assessment/Plan: DIAGNOSES: # ACUTE HYPOXEMIC RESP FAILURE # CAP # COPD EXACERBATION # ACUTE ALCOHOL WITHDRAWAL, SEVERE / ALCOHOLISM / SUSPECT VITAMIN DEFICIENCIES # MILD ALCOHOLIC HEPATITIS WITH NORMAL BILIRUBIN # CHRONIC PRESCRIBED NARCOTIC DEPENDENCE # ONGOING TOBACCO USE Overall stable from resp standpoint. Will need ongoing antibiotics and resp treatment. Due to the patient's feeling that he would not be successful at quitting drinking, it has been our plan to not have him go through withdrawal and have him continue to drink here. He had stated he was only drinking a pt of liquor per day and we were giving him vodka on a scheduled basis a few times a day but this clearly along with his Ativan was not enough to prevent more severe withdrawal. At this point will try and continue giving him alcohol and will increase the frequency but clearly will need to monitor him closely while were treating his respiratory infection and treat him with additional medications as needed. PLANS: -continue propafol, will need to add scheduled benzo for sz prevention -continue abx, steroids, bronchodilators -increase acivity as able over time -thiamine -nicotine patch -he will not be able to swallow his pain meds now, will use a fentanyl patch -DVT prophylaxis, will hold lovenox at present due to low platelet count seen on multidisciplinary ICU rounds today Discussed in detail with Dr. Salty Jaramillo SUBJECTIVE: currently sedated and unable to assess sxs During the night he became severely agitated, more confused, and aggressive, unable to cooperate with necessary care and safety measures, despite EtOH, benzo , and haldol, so started on propafol drip He is now currently very sedated OBJECTIVE Vitals reviewed: pulses good, some HTN, no fever Internet Developer, my review: sinus rhythm Exam: Sedated Currently no tremor skin warm dry color ok no jaundice resps relaxed lungs severely diminished BSs heart regular abd soft nondistended, bowel sounds present limbs warm, no edema iv site ok Objective: Vital Signs Temp Pulse Resp BP Pulse Ox 37.0 C 61 17 157/94 H 100 08/14/16 08:00 08/14/16 08:00 08/14/16 08:00 08/14/16 08:00 08/14/16 08:00 Laboratory Results 08/13/16 05:45 08/14/16 04:58 08/13/16 08/14/16 08/15/16 06:59 06:59 06:59 Intake Total 3774 2933 Output Total 6730 5361 Balance 2224 -92 ICD10 Worksheet Patient Problems: Problems Problem Status Onset Pneumonia Acute
[2016-08-14] MEDS ORDERED: CALCIUM GLUCONATE 50 ML IV ONE (15:32)
[2016-08-14] MEDS ORDERED: MAGNESIUM SULF 1 GM/DEXTROSE 100 ML IV ONE (15:32)
[2016-08-14] MEDS: LORazepam 2 MG/ML INJ IVP SCH ×2 (16:46→18:46)
[2016-08-14] MEDS: NS 1,000 ML IV SCH (21:56)
[2016-08-14] MEDS: AMITRIPTYLINE HCL 50 MG TAB PO SCH (21:57)
[2016-08-14] MEDS: PATCH REMOVAL 1 EA PATCH TD SCH (22:07)
[2016-08-15] MEDS: DEXMEDETOMIDINE HCL 400 MCG in NS 100 ML IV SCH ×4 (01:04→19:58)
[2016-08-15] MEDS: LORazepam 2 MG/ML INJ IVP SCH ×5 (03:53→23:21)
[2016-08-15] MEDS: IPRATROPIUM/ALBUTEROL 3 ML DEYVIAL IH SCH ×4 (05:09→21:10)
[2016-08-15 05:44] LABS: IONIZED CALCIUM 1.25 MMOL/L (1.12-1.30)
[2016-08-15 05:55] LABS: ANION GAP 11 mEq/L (8-16); CALCIUM 9.8 mg/dL (8.5-10.4); CARBON DIOXIDE 27 mEq/l (22-31); CHLORIDE 102 mEq/L (97-110); CREATININE 0.7 mg/dL (0.7-1.3); GLOMERULAR FILTRATION RATE > 60; GLUCOSE 131 mg/dL (70-100); MAGNESIUM 1.8 mg/dL (1.6-2.3); POTASSIUM 4.1 mEq/L (3.5-5.2); SODIUM 140 mEq/L (134-144)
[2016-08-15] MEDS ORDERED: MAGNESIUM SULF 1 GM/DEXTROSE 100 ML IV ONE (08:24)
--- NOTE | 2016-08-15 09:12 | PDINTPN ---
Wind Operations Manager Progress Note Assessment/Plan: Assessment/Plan: * Respiratory failure-stable on minimal supplemental O2 -wean as tolerated * Pneumonia-continue current antibiotics * Alcohol withdrawal-sedated this morning and markedly somnolent Wean as tolerated * Chronic obstructive pulmonary disease-stable. -continue nebs * Chronic back pain Subjective: Somnolent, but resting comfortably. Objective: Vital Signs Temp Pulse Resp BP Pulse Ox 36.7 C 69 17 120/90 H 96 08/15/16 08:00 08/15/16 08:00 08/15/16 08:00 08/15/16 08:00 08/15/16 08:00 Laboratory Results 08/13/16 05:45 08/15/16 05:40 08/14/16 08/15/16 08/16/16 05:59 05:59 05:59 Intake Total 4633 1418 Output Total 3025 2150 Balance 1608 -902 Physical Exam - Physical Exam General Appearance: other (Somnolent) EENT: PERRL/EOMI, normal ENT inspection Neck: non-tender, full range of motion, supple, normal inspection Respiratory: crackles (Few basilar) Cardiac/Chest: normal peripheral pulses, regular rate, rhythm Peripheral Pulses: 2+: carotid (R), carotid (L), femoral (R), femoral (L), dorsalis-pedis (R), dorsalis-pedis (L) Abdomen: normal bowel sounds, non-tender, soft Male Genitalia: deferred Rectal: deferred Skin: normal color, warm/dry ICD10 Worksheet Patient Problems: Problems Problem Status Onset Pneumonia Acute
[2016-08-15] MEDS: predniSONE 20 MG TAB PO SCH (09:36)
[2016-08-15] MEDS: PREGABALIN 100 MG CAP PO SCH ×3 (09:37→22:07)
[2016-08-15] MEDS: NICOTINE 14 MG/24 HR PATCH TD SCH (09:37)
[2016-08-15] MEDS: AZITHROMYCIN IV 500 MG in D5W 250 ML IV SCH (10:30)
[2016-08-15] MEDS: LIDOCAINE 5% 1 EA PATCH TD SCH (10:33)
[2016-08-15] MEDS: ERTAPENEM 1 GM in NS 100 ML IV SCH (11:41)
[2016-08-15] MEDS: PANTOPRAZOLE SODIUM 40 MG in NS 100 ML IV SCH (12:23)
--- NOTE | 2016-08-15 12:58 | HOSPPROG ---
Hospitalist Progress Note Assessment/Plan: 56-year-old male admitted for respiratory failure and alcohol withdrawal. Patient is new to me today - acute hypoxic respiratory failure with CAP - Acute COPD exacerbation with bronchospasm requiring bronchodilators - acute alcohol withdrawal syndrome with a history of seizures and possible vitamin deficiencies - mild alcohol hepatitis with normal bilirubin, Thrombocytopenia - active tobacco use - chronic prescribed narcotic dependence plan: Patient is requiring Precedex for his alcohol withdrawal otherwise he is quite tremulous and disruptive. Will attempt to diminish the Precedex and begin Ativan as the agent for management of his withdrawal. Continue pulmonary care with antibiotics and bronchodilators. Nicotine patch for his nicotine withdrawal. Per previous notes in agreement with the patient that we will not attempt to complete an alcohol withdrawal here during this hospitalization. The initial plan was to give him vodka but this current time he is not sufficiently alert for that and thus he is sedated on Precedex and will be further sedated if possible on Ativan. DVT prophylaxis will be held due to the gentleman's thrombocytopenia. Subjective: patient is sedated on Precedex but can be mildly awaken. He has no complaints. Objective: Vital Signs Temp Pulse Resp BP Pulse Ox 36.7 C 83 14 104/77 97 08/15/16 08:00 08/15/16 12:00 08/15/16 12:00 08/15/16 12:00 08/15/16 12:00 Laboratory Results 08/13/16 05:45 08/15/16 05:40 08/14/16 08/15/16 08/16/16 05:59 05:59 05:59 Intake Total 4617 8589 Output Total 5812 3456 Balance 1608 -975 - Time Spent With Patient Time Spent with Patient: greater than 35 minutes Time Spent with Patient: Greater than 35 minutes spent on this patients care, greater than 50% of time spent counseling, educating, and coordinating care regarding the above mentioned plan. - Pending Discharge Pending Discharge Within 24 Hours: No Pending Discharge Within 48 Hours: No - Physical Exam Constitutional: no apparent distress, chronically ill appearing, other ( sedated on Precedex) Eyes: PERRL, anicteric sclera Cardiovascular: regular rate and rhythym, no murmur, rub, or gallop Respiratory: expiratory wheeze, inspiratory crackles, rhonchi Gastrointestinal: normoactive bowel sounds, soft, non-tender abdomen Genitourinary: no bladder fullness Skin: warm Neurologic: other ( sedated on Precedex.) ICD10 Worksheet Patient Problems: Problems Problem Status Onset Pneumonia Acute
[2016-08-15] MEDS: THIAMINE HCL 500 MG in NS 100 ML IV SCH ×2 (13:59→20:54)
[2016-08-15] MEDS ORDERED: fentaNYL 50 MCG PATCH TD SCH (15:15)
[2016-08-15 19:01] LABS: POTASSIUM 5.8 mEq/L (3.5-5.2)
[2016-08-15] MEDS: NS 1,000 ML IV SCH (19:59)
--- NOTE | 2016-08-15 20:37 | CPEKG ---
Heart Rate: 71 RR Interval: 845 P-R Interval: 160 QRSD Interval: 82 QT Interval: 460 QTC Interval: 500 P [place]: 49 QRS [place]: 4 T Wave [place]: 24 EKG Severity - BORDERLINE ECG - EKG Impression: SINUS RHYTHM EKG Impression: PROBABLE LEFT ATRIAL ABNORMALITY EKG Impression: BORDERLINE PROLONGED QT INTERVAL Electronically Signed By: Real Mckinley 16-Aug-2016 14:05:33
[2016-08-15] MEDS ORDERED: SODIUM POLY SULF 15 GM/60 ML BOTTLE PO ONE (20:54)
[2016-08-15] MEDS: PATCH REMOVAL 1 EA PATCH TD SCH (21:00)
[2016-08-15 21:11] LABS: POTASSIUM 4.5 mEq/L (3.5-5.2)
[2016-08-15] MEDS: AMITRIPTYLINE HCL 50 MG TAB PO SCH (22:07)
[2016-08-16 02:27] LABS: ANION GAP 10 mEq/L (8-16); CALCIUM 8.8 mg/dL (8.5-10.4); CARBON DIOXIDE 25 mEq/l (22-31); CHLORIDE 104 mEq/L (97-110); CREATININE 0.7 mg/dL (0.7-1.3); GLOMERULAR FILTRATION RATE > 60; GLUCOSE 177 mg/dL (70-100); POTASSIUM 4.4 mEq/L (3.5-5.2); SODIUM 139 mEq/L (134-144)
[2016-08-16] MEDS: DEXMEDETOMIDINE HCL 400 MCG in NS 100 ML IV SCH ×3 (04:07→21:22)
[2016-08-16] MEDS: NS 1,000 ML IV SCH ×3 (04:11→22:31)
[2016-08-16 04:26] LABS: IONIZED CALCIUM 1.16 MMOL/L (1.12-1.30)
[2016-08-16 04:27] LABS: % IMMATURE GRANULYOCYTES 0.4 % (0.0-1.1); ABSOLUTE IMMATURE GRANULOCYTES 0.02 10^3/uL (0.00-0.10); ADD DIFF? NO; ADD MORPH? NO; ADD SCAN? NO; ATYPICAL LYMPHOCYTE FLAG 0 (0-99); FRAGMENT RBC FLAG 0 (0-99); HEMOGLOBIN 16.4 g/dL (13.7-17.5); LEFT SHIFT FLG 10 (0-99); LIPEMIA HEMOLYSIS FLAG 90 (0-99); MEAN CELL HEMOGLOBIN CONCENTR. 34.2 g/dL (32.4-36.7); MEAN CELL VOLUME 93.8 fL (81.5-99.8); MEAN PLATELET VOLUME 8.7 fL (8.7-11.7); PLATELET CLUMPS FLAG 0 (0-99); PLATELET COUNT 62 10^3/uL (150-400); RED BLOOD CELL COUNT 5.12 10^6/uL (4.40-6.38); RED CELL DISTRIBUTION WIDTH 12.1 % (11.5-15.2)
[2016-08-16] MEDS: IPRATROPIUM/ALBUTEROL 3 ML DEYVIAL IH SCH ×4 (04:51→21:37)
[2016-08-16 05:02] LABS: ALANINE AMINOTRANSFERASE 65 IU/L (21-72); ALBUMIN 3.4 g/dL (3.5-5.0); ALKALINE PHOSPHATASE 94 IU/L (38-126); ANION GAP 10 mEq/L (8-16); ASPARTATE AMINOTRANSFERASE 46 IU/L (17-59); BILIRUBIN,TOTAL 1.1 mg/dL (0.1-1.4); CALCIUM 8.8 mg/dL (8.5-10.4); CARBON DIOXIDE 24 mEq/l (22-31); CHLORIDE 103 mEq/L (97-110); CREATININE 0.6 mg/dL (0.7-1.3); GLOMERULAR FILTRATION RATE > 60; GLUCOSE 157 mg/dL (70-100); MAGNESIUM 1.7 mg/dL (1.6-2.3); POTASSIUM 4.3 mEq/L (3.5-5.2); SODIUM 137 mEq/L (134-144); TOTAL PROTEIN 6.5 g/dL (6.3-8.2)
[2016-08-16] MEDS: LORazepam 2 MG/ML INJ IVP SCH ×5 (05:08→17:47)
[2016-08-16] MEDS: THIAMINE HCL 500 MG in NS 100 ML IV SCH (08:54)
[2016-08-16] MEDS: predniSONE 20 MG TAB PO SCH (08:54)
[2016-08-16] MEDS: PREGABALIN 100 MG CAP PO SCH ×3 (08:54→22:28)
[2016-08-16] MEDS: AZITHROMYCIN IV 500 MG in D5W 250 ML IV SCH (08:57)
[2016-08-16] MEDS: ERTAPENEM 1 GM in NS 100 ML IV SCH (08:57)
[2016-08-16] MEDS: PANTOPRAZOLE SODIUM 40 MG in NS 100 ML IV SCH (08:57)
[2016-08-16] MEDS: LIDOCAINE 5% 1 EA PATCH TD SCH (08:57)
[2016-08-16] MEDS: NICOTINE 14 MG/24 HR PATCH TD SCH (08:57)
--- NOTE | 2016-08-16 09:07 | PDINTPN ---
Placement Director Progress Note Assessment/Plan: Assessment/Plan: * Respiratory failure-stable on room air * Pneumonia-continue current antibiotics. Clinically improved * Alcohol withdrawal-markedly improved this morning. Up in chair in conversant -wean Precedex as tolerated * Chronic obstructive pulmonary disease-stable. -continue nebs * Chronic back pain * PT/OT * Out of bed to chair Subjective: Sitting up in chair, eating breakfast. Conversant this morning and much more alert. Still tremulous. Objective: Vital Signs Temp Pulse Resp BP Pulse Ox 36.4 C 73 16 91/62 L 94 08/16/16 08:00 08/16/16 08:00 08/16/16 08:00 08/16/16 08:00 08/16/16 08:00 Laboratory Results 08/16/16 04:18 08/16/16 04:18 08/15/16 08/16/16 08/17/16 05:59 05:59 05:59 Intake Total 1418 3760 Output Total 2150 1950 750 Balance -732 1810 -750 Physical Exam - Physical Exam General Appearance: alert EENT: PERRL/EOMI, normal ENT inspection, pharynx normal Neck: non-tender, full range of motion, supple, normal inspection Respiratory: crackles (Few basilar), prolonged expiration (Mild), No respiratory distress, No accessory muscle use Cardiac/Chest: normal peripheral pulses, regular rate, rhythm Peripheral Pulses: 2+: carotid (R), carotid (L), femoral (R), femoral (L), dorsalis-pedis (R), dorsalis-pedis (L) Abdomen: normal bowel sounds, non-tender, soft Male Genitalia: deferred Rectal: deferred Skin: normal color, warm/dry Extremities: normal range of motion, non-tender, normal inspection, normal capillary refill Neuro/Psych: alert ICD10 Worksheet Patient Problems: Problems Problem Status Onset Pneumonia Acute
[2016-08-16] MEDS ORDERED: MAGNESIUM SULF 1 GM/DEXTROSE 100 ML IV ONE (09:50)
--- NOTE | 2016-08-16 10:48 | HOSPPROG ---
Hospitalist Progress Note Assessment/Plan: 56-year-old male admitted for respiratory failure and alcohol withdrawal. - Severe sepsis on admission with elevated lactate tachypnea tachycardia and hypoxemia. - acute hypoxic respiratory failure with CAP, Today is Day #5 of Azithromycin. Will stop after today's dosage. Patient afebrile with now normal WBC - Acute COPD exacerbation with bronchospasm requiring bronchodilators, steroids. He continues to have rhochi and some rales without wheezing. Continue care - acute alcohol withdrawal syndrome with a history of seizures and possible vitamin deficiencies. On Precedex for withdrawal and tapering today. NO seizures since admission. Patient did not desire to stop ETOH so vodka was ordered yet is held while using precedex and ativan. Patient alert yet too sedated to transfer table operator if he wants to stop ETOH Plan: Stop precedex and use ativan Give Vodka - mild alcohol hepatitis with normal bilirubin, Thrombocytopenia. Thrombocytopenia persists though no worse. - Protein caloric malnutrition with an albumin of 3.4: He is beginning to eat now. We will monitor caloric intake. - active tobacco use - chronic prescribed narcotic dependence for chronic back pain PLan: restart his prior MS Contin and stop fentanyl patch. plan: - . Precedex and start Ativan for withdrawal; hold vodka; restart MS Contin for his chronic pain; - watch platelet count per the ETOH induced thrombocytopenia - continue pulmonary care. Note that I have stopped the azithromycin and he is only on bronchodilators and steroids now for his bronchospasm. - As withdrawal resolved PT and OT to assist in ambulation. Disposition: Patient reports he has an apartment in [place]. Currently there is no planned discharge date as he is still in alcohol withdrawal and requires treatment for his pneumonia and bronchospasm. Per previous notes in agreement with the patient that we will not attempt to complete an alcohol withdrawal here during this hospitalization. The initial plan was to give him vodka but this current time he is not sufficiently alert for that and thus he is sedated on Precedex and will be further sedated if possible on Ativan. DVT prophylaxis will be held due to the gentleman's thrombocytopenia. Subjective: No complaints at this time. The patient is mildly sedated due to Ativan for his alcohol withdrawal. Nursing reports he has been able to swallow without difficulty, without any signs of aspiration. He has been up and in a chair. There have been no seizures. Objective: Vital Signs Temp Pulse Resp BP Pulse Ox 36.4 C 82 15 91/68 L 93 08/16/16 08:00 08/16/16 09:43 08/16/16 09:43 08/16/16 09:43 08/16/16 09:43 Laboratory Results 08/16/16 04:18 08/16/16 04:18 08/15/16 08/16/16 08/17/16 05:59 05:59 05:59 Intake Total 1418 3760 Output Total 2150 1950 750 Balance -732 1810 -750 - Physical Exam Constitutional: no apparent distress, chronically ill appearing Eyes: PERRL, anicteric sclera Ears, Nose, Mouth, Throat: moist mucous membranes, hearing normal Cardiovascular: regular rate and rhythym, no murmur, rub, or gallop Respiratory: inspiratory crackles, bronchial breath sounds, rhonchi, other ( No inspiratory or expiratory wheezing is noted.) Gastrointestinal: normoactive bowel sounds, soft, non-tender abdomen, other ( No bowel movement since admission) Genitourinary: no bladder fullness, other ( condom catheters in place. No signs of scrotal or penile erythema) Skin: warm Musculoskeletal: generalized weakness Neurologic: AAOx3, CN II-XII Intact Psychiatric: interacting appropriately ICD10 Worksheet Patient Problems: Problems Problem Status Onset Pneumonia Acute
[2016-08-16] MEDS: morphINE SR 30 MG TAB PO SCH ×2 (12:25→19:51)
[2016-08-16] MEDS ORDERED: VODKA 50 ML BOTTLE PO SCH (15:15)
[2016-08-16] MEDS: VODKA 50 ML BOTTLE PO SCH ×2 (15:17→17:47)
[2016-08-16] MEDS: AMITRIPTYLINE HCL 50 MG TAB PO SCH (19:51)
[2016-08-16] MEDS: PATCH REMOVAL 1 EA PATCH TD SCH (19:54)
[2016-08-16 21:25] LABS: POTASSIUM 4.6 mEq/L (3.5-5.2)
[2016-08-17] MEDS: LORazepam 2 MG/ML INJ IVP SCH ×2 (00:04→05:29)
[2016-08-17] MEDS: DEXMEDETOMIDINE HCL 400 MCG in NS 100 ML IV SCH ×2 (01:22→06:26)
[2016-08-17 04:19] LABS: % IMMATURE GRANULYOCYTES 0.6 % (0.0-1.1); ABSOLUTE IMMATURE GRANULOCYTES 0.03 10^3/uL (0.00-0.10); ADD DIFF? NO; ADD MORPH? NO; ADD SCAN? NO; ATYPICAL LYMPHOCYTE FLAG 10 (0-99); FRAGMENT RBC FLAG 0 (0-99); HEMATOCRIT 48.8 % (40.0-51.0); HEMOGLOBIN 16.8 g/dL (13.7-17.5); LEFT SHIFT FLG 0 (0-99); LIPEMIA HEMOLYSIS FLAG 90 (0-99); MEAN CELL HEMOGLOBIN 32.5 pg (27.9-34.1); MEAN CELL HEMOGLOBIN CONCENTR. 34.4 g/dL (32.4-36.7); MEAN CELL VOLUME 94.4 fL (81.5-99.8); MEAN PLATELET VOLUME 9.6 fL (8.7-11.7); PLATELET CLUMPS FLAG 0 (0-99); PLATELET COUNT 102 10^3/uL (150-400); RED BLOOD CELL COUNT 5.17 10^6/uL (4.40-6.38); RED CELL DISTRIBUTION WIDTH 12.2 % (11.5-15.2)
[2016-08-17 04:26] LABS: IONIZED CALCIUM 1.15 MMOL/L (1.12-1.30)
[2016-08-17 04:39] LABS: ANION GAP 8 mEq/L (8-16); CALCIUM 9.2 mg/dL (8.5-10.4); CARBON DIOXIDE 26 mEq/l (22-31); CHLORIDE 104 mEq/L (97-110); CREATININE 0.6 mg/dL (0.7-1.3); GLOMERULAR FILTRATION RATE > 60; GLUCOSE 154 mg/dL (70-100); MAGNESIUM 1.6 mg/dL (1.6-2.3); POTASSIUM 4.1 mEq/L (3.5-5.2); SODIUM 138 mEq/L (134-144)
[2016-08-17] MEDS: IPRATROPIUM/ALBUTEROL 3 ML DEYVIAL IH SCH ×4 (05:27→20:55)
[2016-08-17] MEDS: NS 1,000 ML IV SCH ×3 (05:29→20:34)
[2016-08-17] MEDS: VODKA 50 ML BOTTLE PO SCH ×5 (07:33→23:37)
[2016-08-17] MEDS: ERTAPENEM 1 GM in NS 100 ML IV SCH (07:53)
[2016-08-17] MEDS: LIDOCAINE 5% 1 EA PATCH TD SCH (07:54)
[2016-08-17] MEDS: NICOTINE 14 MG/24 HR PATCH TD SCH (07:54)
[2016-08-17] MEDS: PANTOPRAZOLE SODIUM 40 MG TAB PO SCH (07:54)
[2016-08-17] MEDS: PREGABALIN 100 MG CAP PO SCH ×3 (07:54→21:33)
[2016-08-17] MEDS: predniSONE 20 MG TAB PO SCH (07:54)
[2016-08-17] MEDS: morphINE SR 30 MG TAB PO SCH ×2 (07:55→21:33)
[2016-08-17] MEDS: THIAMINE HCL 100 MG TAB PO SCH (07:55)
--- NOTE | 2016-08-17 08:40 | HOSPPROG ---
Hospitalist Progress Note Assessment/Plan: #Severe alcohol withdrawal: off Precedex. Schedule Ativan with PRN. Vodka q6hr #Acute hypoxemic resp failure: resolved #Aspiration PNA: cont abx #COPD: cont nebs, prednisone #Chronic back pain: PRN oxycodone #Deconditioning: PT/OT #Diet: regular #DVT ppx: Lovenox #Disp: warrants ICU admission requiring CIWA Subjective: seeing bugs on his food today Objective: Vital Signs Temp Pulse Resp BP Pulse Ox 36.6 C 68 10 L 139/95 H 94 08/17/16 08:05 08/17/16 08:05 08/17/16 08:05 08/17/16 08:05 08/17/16 08:05 Laboratory Results 08/17/16 04:05 08/17/16 04:05 08/16/16 08/17/16 08/18/16 05:59 05:59 05:59 Intake Total 3760 3731 Output Total 1950 3150 775 Balance 1810 581 -775 - Physical Exam Constitutional: no apparent distress, cachectic Eyes: PERRL Ears, Nose, Mouth, Throat: moist mucous membranes, hearing normal Cardiovascular: regular rate and rhythym, no murmur, rub, or gallop Respiratory: no respiratory distress, no rales or rhonchi Gastrointestinal: normoactive bowel sounds, soft, non-tender abdomen Skin: warm Neurologic: AAOx3, CN II-XII Intact, other (mild hand tremor) Psychiatric: poor insight, poor judgement ICD10 Worksheet Patient Problems: Problems Problem Status Onset Pneumonia Acute
[2016-08-17] MEDS: AZITHROMYCIN IV 500 MG in D5W 250 ML IV SCH (08:58)
[2016-08-17] MEDS ORDERED: MAGNESIUM SULF 1 GM/DEXTROSE 100 ML IV ONE (09:10)
[2016-08-17] MEDS ORDERED: PNEUMOCOCCAL 0.5ML VACCINE VIAL IM ONE (09:10)
--- NOTE | 2016-08-17 09:44 | PDINTPN ---
Cosmetic Sales Advisor Progress Note Assessment/Plan: Assessment/Plan: * Respiratory failure-stable on room air * Pneumonia-continue current antibiotics. Clinically improved * Alcohol withdrawal-markedly improved this morning. Up in chair in conversant. CIWA at 7 today -wean Precedex as tolerated * Chronic obstructive pulmonary disease-stable. -continue nebs * Chronic back pain * PT/OT * Out of bed to chair Subjective: Resting comfortably. Conversant. Speech is mildly slurred Objective: Vital Signs Temp Pulse Resp BP Pulse Ox 36.6 C 68 10 L 139/95 H 94 08/17/16 08:05 08/17/16 08:05 08/17/16 08:05 08/17/16 08:05 08/17/16 08:05 Laboratory Results 08/17/16 04:05 08/17/16 04:05 08/16/16 08/17/16 08/18/16 05:59 05:59 05:59 Intake Total 3760 3731 Output Total 1950 3150 775 Balance 1810 581 -775 Physical Exam - Physical Exam General Appearance: alert, no apparent distress EENT: PERRL/EOMI, normal ENT inspection Neck: non-tender, full range of motion, supple, normal inspection Respiratory: chest non-tender, lungs clear, normal breath sounds Cardiac/Chest: normal peripheral pulses, regular rate, rhythm Peripheral Pulses: 2+: carotid (R), carotid (L), femoral (R), femoral (L), dorsalis-pedis (R), dorsalis-pedis (L) Abdomen: normal bowel sounds, non-tender, soft Male Genitalia: deferred Rectal: deferred Skin: normal color, warm/dry Extremities: normal range of motion, non-tender, normal inspection, normal capillary refill Neuro/Psych: alert ICD10 Worksheet Patient Problems: Problems Problem Status Onset Pneumonia Acute
[2016-08-17] MEDS ORDERED: LORazepam 1 MG TAB PO PRN (10:18)
[2016-08-17] MEDS ORDERED: LORazepam 2 MG/ML INJ IVP PRN (10:18)
[2016-08-17] MEDS ORDERED: LORazepam 1 MG TAB PO SCH (12:00)
[2016-08-17] MEDS ORDERED: NS 500 ML IV ONE (12:29)
[2016-08-17] MEDS: LORazepam 1 MG TAB PO SCH ×2 (17:26→23:37)
[2016-08-17] MEDS ORDERED: NS 1,000 ML IV ONE (20:24)
[2016-08-17] MEDS ORDERED: NS BOLUS 1000 ML (Wide open) IV ONE (20:30)
[2016-08-17] MEDS: PATCH REMOVAL 1 EA PATCH TD SCH (21:33)
[2016-08-17] MEDS: AMITRIPTYLINE HCL 50 MG TAB PO SCH (21:33)
[2016-08-18] MEDS: oxyCODONE IR 5 MG TAB PO PRN ×2 (02:10→17:08)
[2016-08-18] MEDS: NS 1,000 ML IV SCH ×2 (04:48→23:54)
[2016-08-18 04:59] LABS: % IMMATURE GRANULYOCYTES 1.2 % (0.0-1.1); ABSOLUTE IMMATURE GRANULOCYTES 0.08 10^3/uL (0.00-0.10); ADD DIFF? NO; ADD MORPH? NO; ADD SCAN? NO; ATYPICAL LYMPHOCYTE FLAG 30 (0-99); FRAGMENT RBC FLAG 0 (0-99); HEMATOCRIT 42.7 % (40.0-51.0); HEMOGLOBIN 14.5 g/dL (13.7-17.5); LEFT SHIFT FLG 10 (0-99); LIPEMIA HEMOLYSIS FLAG 90 (0-99); MEAN CELL HEMOGLOBIN 32.5 pg (27.9-34.1); MEAN CELL VOLUME 95.7 fL (81.5-99.8); MEAN PLATELET VOLUME 9.4 fL (8.7-11.7); PLATELET CLUMPS FLAG 0 (0-99); PLATELET COUNT 140 10^3/uL (150-400); RED BLOOD CELL COUNT 4.46 10^6/uL (4.40-6.38); RED CELL DISTRIBUTION WIDTH 12.3 % (11.5-15.2)
[2016-08-18 05:14] LABS: ANION GAP 8 mEq/L (8-16); CALCIUM 8.9 mg/dL (8.5-10.4); CARBON DIOXIDE 23 mEq/l (22-31); CHLORIDE 107 mEq/L (97-110); CREATININE 0.6 mg/dL (0.7-1.3); GLOMERULAR FILTRATION RATE > 60; GLUCOSE 97 mg/dL (70-100); MAGNESIUM 1.7 mg/dL (1.6-2.3); POTASSIUM 4.3 mEq/L (3.5-5.2); SODIUM 138 mEq/L (134-144)
[2016-08-18] MEDS: IPRATROPIUM/ALBUTEROL 3 ML DEYVIAL IH SCH ×4 (06:05→21:43)
[2016-08-18] MEDS: LORazepam 1 MG TAB PO SCH ×4 (06:11→23:15)
[2016-08-18] MEDS: VODKA 50 ML BOTTLE PO SCH ×3 (06:11→17:07)
[2016-08-18] MEDS: morphINE SR 30 MG TAB PO SCH ×2 (07:31→21:09)
[2016-08-18] MEDS: THIAMINE HCL 100 MG TAB PO SCH (07:32)
[2016-08-18] MEDS: PREGABALIN 100 MG CAP PO SCH ×3 (07:33→21:09)
[2016-08-18] MEDS: PANTOPRAZOLE SODIUM 40 MG TAB PO SCH (07:33)
[2016-08-18] MEDS: NICOTINE 14 MG/24 HR PATCH TD SCH (07:39)
[2016-08-18] MEDS: LIDOCAINE 5% 1 EA PATCH TD SCH (07:39)
[2016-08-18] MEDS: predniSONE 20 MG TAB PO SCH (08:53)
[2016-08-18] MEDS: ERTAPENEM 1 GM in NS 100 ML IV SCH (08:53)
[2016-08-18] MEDS ORDERED: MAGNESIUM SULF 1 GM/DEXTROSE 100 ML IV ONE (09:04)
--- NOTE | 2016-08-18 09:47 | PDINTPN ---
Appeals Nurse Progress Note Assessment/Plan: Assessment/Plan: * Respiratory failure-stable on room air * Pneumonia-continue current antibiotics. Clinically improved * Alcohol withdrawal-markedly improved this morning. Up in chair in conversant. -wean Precedex as tolerated * Chronic obstructive pulmonary disease-stable. -continue nebs * Chronic back pain * PT/OT * Out of bed to chair Subjective: Up in chair comfortable. Awake and alert. Objective: Vital Signs Temp Pulse Resp BP Pulse Ox 36.7 C 112 H 12 122/77 H 92 08/18/16 04:00 08/18/16 08:00 08/18/16 08:00 08/18/16 08:00 08/18/16 08:00 Laboratory Results 08/18/16 04:50 08/18/16 04:50 08/17/16 08/18/16 08/19/16 05:59 05:59 05:59 Intake Total 3731 6630 Output Total 3150 2825 Balance 581 3805 Physical Exam - Physical Exam General Appearance: alert, no apparent distress EENT: PERRL/EOMI, normal ENT inspection Neck: non-tender, full range of motion, supple, normal inspection Respiratory: crackles (Few), prolonged expiration, No respiratory distress, No wheezing Cardiac/Chest: normal peripheral pulses, regular rate, rhythm Peripheral Pulses: 2+: carotid (R), carotid (L), femoral (R), femoral (L), dorsalis-pedis (R), dorsalis-pedis (L) Abdomen: normal bowel sounds, non-tender, soft Male Genitalia: deferred Rectal: deferred Skin: normal color, warm/dry Extremities: normal range of motion, non-tender, normal inspection, normal capillary refill Neuro/Psych: no motor/sensory deficits, alert, normal mood/affect, oriented x 3 ICD10 Worksheet Patient Problems: Problems Problem Status Onset Pneumonia Acute
[2016-08-18] MEDS: LORazepam 1 MG TAB PO PRN ×3 (10:23→23:15)
[2016-08-18] MEDS: ENOXAPARIN 40 MG/0.4 ML SYR SC SCH (11:53)
--- NOTE | 2016-08-18 14:06 | HOSPPROG ---
Hospitalist Progress Note Assessment/Plan: #Severe alcohol withdrawal: off Precedex. Increase Ativan to 2mg QID (lower dose yesterday with hypotension) Vodka q6hr #Acute hypoxemic resp failure: resolved #Aspiration PNA: cont abx #COPD: cont nebs, prednisone #Chronic back pain: PRN oxycodone #thrombocytopenia: due to Etoh #Deconditioning: PT/OT #Diet: regular #DVT ppx: Lovenox #Disp: warrants ICU admission requiring CIWA. DC once cleared from PT Subjective: seeing bugs. Denies SOB Objective: Vital Signs Temp Pulse Resp BP Pulse Ox 36.6 C 116 H 18 105/77 90 L 08/18/16 11:39 08/18/16 12:50 08/18/16 12:50 08/18/16 11:39 08/18/16 12:50 Laboratory Results 08/18/16 04:50 08/18/16 04:50 08/17/16 08/18/16 08/19/16 05:59 05:59 05:59 Intake Total 3731 6630 450 Output Total 3150 2825 1100 Balance 581 3805 -650 - Physical Exam Constitutional: no apparent distress Eyes: PERRL Ears, Nose, Mouth, Throat: moist mucous membranes, hearing normal Cardiovascular: regular rate and rhythym, tachycardia Respiratory: no respiratory distress Gastrointestinal: normoactive bowel sounds, soft, non-tender abdomen Genitourinary: no bladder fullness Skin: warm Musculoskeletal: generalized weakness Neurologic: AAOx3, CN II-XII Intact Psychiatric: other (mild hand tremor. Tangential ) ICD10 Worksheet Patient Problems: Problems Problem Status Onset Pneumonia Acute
[2016-08-18] MEDS: AMITRIPTYLINE HCL 50 MG TAB PO SCH (21:09)
[2016-08-18] MEDS: PATCH REMOVAL 1 EA PATCH TD SCH (21:09)
[2016-08-19] MEDS: VODKA 50 ML BOTTLE PO SCH ×5 (00:42→21:06)
[2016-08-19 04:26] LABS: % IMMATURE GRANULYOCYTES 0.6 % (0.0-1.1); ABSOLUTE IMMATURE GRANULOCYTES 0.04 10^3/uL (0.00-0.10); ADD DIFF? NO; ADD MORPH? NO; ADD SCAN? NO; ATYPICAL LYMPHOCYTE FLAG 10 (0-99); FRAGMENT RBC FLAG 0 (0-99); HEMATOCRIT 43.5 % (40.0-51.0); HEMOGLOBIN 14.7 g/dL (13.7-17.5); LEFT SHIFT FLG 0 (0-99); LIPEMIA HEMOLYSIS FLAG 90 (0-99); MEAN CELL HEMOGLOBIN 32.4 pg (27.9-34.1); MEAN CELL HEMOGLOBIN CONCENTR. 33.8 g/dL (32.4-36.7); MEAN CELL VOLUME 95.8 fL (81.5-99.8); MEAN PLATELET VOLUME 9.2 fL (8.7-11.7); PLATELET CLUMPS FLAG 20 (0-99); PLATELET COUNT 176 10^3/uL (150-400); RED BLOOD CELL COUNT 4.54 10^6/uL (4.40-6.38); RED CELL DISTRIBUTION WIDTH 12.4 % (11.5-15.2)
[2016-08-19 04:47] LABS: ANION GAP 9 mEq/L (8-16); CALCIUM 9.4 mg/dL (8.5-10.4); CARBON DIOXIDE 28 mEq/l (22-31); CHLORIDE 102 mEq/L (97-110); CREATININE 0.7 mg/dL (0.7-1.3); GLOMERULAR FILTRATION RATE > 60; GLUCOSE 94 mg/dL (70-100); MAGNESIUM 1.9 mg/dL (1.6-2.3); POTASSIUM 4.3 mEq/L (3.5-5.2); SODIUM 139 mEq/L (134-144)
[2016-08-19] MEDS: LORazepam 1 MG TAB PO SCH (05:00)
[2016-08-19] MEDS: LORazepam 1 MG TAB PO PRN ×2 (05:00→09:10)
[2016-08-19] MEDS: IPRATROPIUM/ALBUTEROL 3 ML DEYVIAL IH SCH ×2 (05:45→13:36)
[2016-08-19] MEDS: NS 1,000 ML IV SCH (06:38)
[2016-08-19] MEDS: oxyCODONE IR 5 MG TAB PO PRN (07:33)
[2016-08-19] MEDS ORDERED: LORazepam 2 MG/ML INJ IVP SCH (09:00)
[2016-08-19] MEDS: LIDOCAINE 5% 1 EA PATCH TD SCH (09:06)
[2016-08-19] MEDS: NICOTINE 14 MG/24 HR PATCH TD SCH (09:08)
[2016-08-19] MEDS: PANTOPRAZOLE SODIUM 40 MG TAB PO SCH (09:10)
[2016-08-19] MEDS: morphINE SR 30 MG TAB PO SCH ×2 (09:10→20:57)
[2016-08-19] MEDS: THIAMINE HCL 100 MG TAB PO SCH (09:10)
[2016-08-19] MEDS: PREGABALIN 100 MG CAP PO SCH ×3 (09:10→20:57)
[2016-08-19] MEDS: ENOXAPARIN 40 MG/0.4 ML SYR SC SCH (09:13)
--- NOTE | 2016-08-19 09:38 | PDINTPN ---
Inspection And Testing Supervisor Progress Note Assessment/Plan: Assessment/Plan: * Respiratory failure-stable on room air * Pneumonia-resolved * Alcohol withdrawal-markedly improved this morning. Up in chair and conversant. Unclear how much improved more improvement is possible -wean Precedex * Chronic obstructive pulmonary disease-stable. -continue nebs * Chronic back pain * PT/OT * Out of bed to chair Subjective: Up in chair. Awake and alert. However still periods of confusion Objective: Vital Signs Temp Pulse Resp BP Pulse Ox 36.6 C 99 20 114/80 93 08/19/16 07:38 08/19/16 07:38 08/19/16 07:38 08/19/16 07:38 08/19/16 07:38 Laboratory Results 08/19/16 04:05 08/19/16 04:05 08/18/16 08/19/16 08/20/16 05:59 05:59 05:59 Intake Total 6630 2904 120 Output Total 2825 2975 400 Balance 3805 -71 -280 Physical Exam - Physical Exam General Appearance: alert EENT: PERRL/EOMI, normal ENT inspection Neck: non-tender, full range of motion, supple, normal inspection Respiratory: chest non-tender, lungs clear, normal breath sounds Cardiac/Chest: normal peripheral pulses, regular rate, rhythm Peripheral Pulses: 2+: carotid (R), carotid (L), femoral (R), femoral (L), dorsalis-pedis (R), dorsalis-pedis (L) Abdomen: normal bowel sounds, non-tender, soft Male Genitalia: deferred Rectal: deferred ICD10 Worksheet Patient Problems: Problems Problem Status Onset Pneumonia Acute
--- NOTE | 2016-08-19 11:03 | HOSPPROG ---
Hospitalist Progress Note Assessment/Plan: #Severe alcohol withdrawal: now outside for window for DTs. Will taper off BZs with Librium taper. 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 Patient does not have medical decisional capacity. He would benefit from a long-term care facility. Will contact his daughter to see if she would be guardian to help with DC plans and goals. #Acute hypoxemic resp failure: resolved #Aspiration PNA: completed course of abx #COPD: cont nebs. #Chronic back pain: PRN oxycodone #thrombocytopenia: resolved. Due to Etoh #Deconditioning: PT/OT #Diet: regular #DVT ppx: Lovenox #Disp: warrants admission with deconditioning, risk for falls and subsequent harm. Case management applying for [employer] Medicaid, guardianship pending Subjective: "have a lot to deal with" Objective: Vital Signs Temp Pulse Resp BP Pulse Ox 36.6 C 99 20 114/80 93 08/19/16 07:38 08/19/16 07:38 08/19/16 07:38 08/19/16 07:38 08/19/16 07:38 Laboratory Results 08/19/16 04:05 08/19/16 04:05 08/18/16 08/19/16 08/20/16 05:59 05:59 05:59 Intake Total 6630 2904 120 Output Total 2825 2975 400 Balance 3805 -71 -280 - Physical Exam Constitutional: cachectic Eyes: PERRL Ears, Nose, Mouth, Throat: moist mucous membranes, hearing normal Cardiovascular: regular rate and rhythym, tachycardia Respiratory: no respiratory distress, no rales or rhonchi, reduced air movement Gastrointestinal: normoactive bowel sounds, soft, non-tender abdomen Genitourinary: no bladder fullness Skin: warm Musculoskeletal: generalized weakness Neurologic: AAOx3, CN II-XII Intact, other (tremulous) Psychiatric: anxious, depressed, flat affect, poor insight, poor judgement, poor memory ICD10 Worksheet Patient Problems: Problems Problem Status Onset Pneumonia Acute
[2016-08-19] MEDS ORDERED: chlordiazePOXIDE 25 MG CAP PO PRN (11:16)
[2016-08-19] MEDS: AMITRIPTYLINE HCL 50 MG TAB PO SCH (20:57)
[2016-08-19] MEDS: PATCH REMOVAL 1 EA PATCH TD SCH (21:07)
[2016-08-20 05:41] LABS: ANION GAP 6 mEq/L (8-16); CALCIUM 9.3 mg/dL (8.5-10.4); CARBON DIOXIDE 29 mEq/l (22-31); CHLORIDE 99 mEq/L (97-110); CREATININE 0.7 mg/dL (0.7-1.3); GLOMERULAR FILTRATION RATE > 60; GLUCOSE 92 mg/dL (70-100); POTASSIUM 4.5 mEq/L (3.5-5.2); SODIUM 134 mEq/L (134-144)
[2016-08-20] MEDS: ENOXAPARIN 40 MG/0.4 ML SYR SC SCH (09:44)
[2016-08-20] MEDS: NICOTINE 14 MG/24 HR PATCH TD SCH (09:45)
[2016-08-20] MEDS: PREGABALIN 100 MG CAP PO SCH ×3 (09:45→20:55)
[2016-08-20] MEDS: morphINE SR 30 MG TAB PO SCH ×2 (09:45→20:55)
[2016-08-20] MEDS: THIAMINE HCL 100 MG TAB PO SCH (09:45)
[2016-08-20] MEDS: PANTOPRAZOLE SODIUM 40 MG TAB PO SCH (09:45)
[2016-08-20] MEDS: LIDOCAINE 5% 1 EA PATCH TD SCH (09:45)
[2016-08-20] MEDS: VODKA 50 ML BOTTLE PO SCH ×4 (10:45→16:31)
[2016-08-20] MEDS: oxyCODONE IR 5 MG TAB PO PRN ×2 (15:13→20:55)
--- NOTE | 2016-08-20 16:30 | HOSPPROG ---
Hospitalist Progress Note Assessment/Plan: #Severe alcohol withdrawal: now outside for window for DTs. Will taper off BZs with Librium: BID through tomorrow, then daily for 1 week #Chronic toxic encephalopathy: improving. Due to significant Etoh abuse. Patient has appointed his daughter as MDPOA and she is agreeable. He would benefit from a long-term care facility. Case management working on facilities #Acute hypoxemic resp failure: resolved #Aspiration PNA: completed course of abx #COPD: cont nebs. #Chronic back pain: PRN oxycodone #thrombocytopenia: resolved. Due to Etoh #Deconditioning: PT/OT #Diet: regular #DVT ppx: Lovenox #Disp: awaiting placement with guidance of daughter Subjective: daughter has agreed to be MDPOA Objective: Vital Signs Temp Pulse Resp BP Pulse Ox 36.7 C 85 18 79/63 L 88 L 08/20/16 16:03 08/20/16 16:03 08/20/16 16:03 08/20/16 16:03 08/20/16 16:03 Laboratory Results 08/19/16 04:05 08/20/16 05:10 08/19/16 08/20/16 08/21/16 05:59 05:59 05:59 Intake Total 2904 590 Output Total 2975 1700 200 Balance -71 -1110 -200 - Physical Exam Constitutional: no apparent distress Eyes: PERRL Ears, Nose, Mouth, Throat: moist mucous membranes, hearing normal Cardiovascular: regular rate and rhythym, no murmur, rub, or gallop Respiratory: no respiratory distress, reduced air movement Gastrointestinal: normoactive bowel sounds, soft, non-tender abdomen Genitourinary: no bladder fullness Skin: warm Musculoskeletal: generalized weakness Neurologic: AAOx3, CN II-XII Intact, other (less tremulous) Psychiatric: depressed, poor judgement (Is more conversational today) ICD10 Worksheet Patient Problems: Problems Problem Status Onset Pneumonia Acute
[2016-08-20] MEDS: AMITRIPTYLINE HCL 50 MG TAB PO SCH (20:54)
[2016-08-20] MEDS: chlordiazePOXIDE 25 MG CAP PO SCH (20:55)
[2016-08-20] MEDS: PATCH REMOVAL 1 EA PATCH TD SCH (20:55)
[2016-08-21 05:49] LABS: ANION GAP 7 mEq/L (8-16); CALCIUM 9.2 mg/dL (8.5-10.4); CARBON DIOXIDE 29 mEq/l (22-31); CHLORIDE 97 mEq/L (97-110); CREATININE 0.8 mg/dL (0.7-1.3); GLOMERULAR FILTRATION RATE > 60; GLUCOSE 106 mg/dL (70-100); POTASSIUM 4.6 mEq/L (3.5-5.2); SODIUM 133 mEq/L (134-144)
[2016-08-21] MEDS: VODKA 50 ML BOTTLE PO SCH ×6 (06:59→23:53)
[2016-08-21] MEDS: NICOTINE 14 MG/24 HR PATCH TD SCH (08:43)
[2016-08-21] MEDS: LIDOCAINE 5% 1 EA PATCH TD SCH (08:43)
[2016-08-21] MEDS: ENOXAPARIN 40 MG/0.4 ML SYR SC SCH (08:43)
[2016-08-21] MEDS: PREGABALIN 100 MG CAP PO SCH ×3 (08:44→22:03)
[2016-08-21] MEDS: THIAMINE HCL 100 MG TAB PO SCH (08:44)
[2016-08-21] MEDS: PANTOPRAZOLE SODIUM 40 MG TAB PO SCH (08:44)
[2016-08-21] MEDS: chlordiazePOXIDE 25 MG CAP PO SCH ×2 (08:44→21:55)
[2016-08-21] MEDS: morphINE SR 30 MG TAB PO SCH ×2 (08:44→21:55)
--- NOTE | 2016-08-21 15:53 | HOSPPROG ---
Hospitalist Progress Note Assessment/Plan: #Severe alcohol withdrawal: now outside for window for DTs. 25 mg for next 5 days then stop. (08/26) #Chronic toxic encephalopathy: conts to improve daily. Due to significant Etoh abuse. Patient has appointed his daughter as MDPOA and she is agreeable. He would benefit from a long-term care facility. Case management working on facilities #Acute hypoxemic resp failure: resolved #Aspiration PNA: completed course of abx #COPD: cont nebs. #Chronic back pain: PRN oxycodone #thrombocytopenia: resolved. Due to Etoh #Deconditioning: PT/OT #Diet: regular #DVT ppx: Lovenox #Disp: awaiting placement with guidance of daughter Subjective: no acute events Objective: Vital Signs Temp Pulse Resp BP Pulse Ox 36.8 C 108 H 12 87/67 L 94 08/21/16 11:43 08/21/16 11:43 08/21/16 11:43 08/21/16 11:43 08/21/16 11:43 Laboratory Results 08/19/16 04:05 08/21/16 04:55 08/20/16 08/21/16 08/22/16 05:59 05:59 05:59 Intake Total 590 1400 Output Total 1700 575 Balance -1110 825 - Physical Exam Constitutional: no apparent distress Eyes: PERRL Ears, Nose, Mouth, Throat: moist mucous membranes Cardiovascular: regular rate and rhythym, no murmur, rub, or gallop Respiratory: no respiratory distress, no rales or rhonchi Gastrointestinal: normoactive bowel sounds Skin: warm Neurologic: AAOx3, CN II-XII Intact, other (less tremor today) ICD10 Worksheet Patient Problems: Problems Problem Status Onset Pneumonia Acute
[2016-08-21] MEDS: AMITRIPTYLINE HCL 50 MG TAB PO SCH (21:56)
[2016-08-21] MEDS: PATCH REMOVAL 1 EA PATCH TD SCH (22:04)
[2016-08-22] MEDS: VODKA 50 ML BOTTLE PO SCH ×4 (05:03→23:15)
[2016-08-22] MEDS: ENOXAPARIN 40 MG/0.4 ML SYR SC SCH (08:15)
[2016-08-22] MEDS: LIDOCAINE 5% 1 EA PATCH TD SCH (08:16)
[2016-08-22] MEDS: NICOTINE 14 MG/24 HR PATCH TD SCH (08:16)
[2016-08-22] MEDS: PREGABALIN 100 MG CAP PO SCH ×3 (08:16→20:40)
[2016-08-22] MEDS: morphINE SR 30 MG TAB PO SCH ×2 (08:16→20:40)
[2016-08-22] MEDS: THIAMINE HCL 100 MG TAB PO SCH (08:16)
[2016-08-22] MEDS: PANTOPRAZOLE SODIUM 40 MG TAB PO SCH (08:16)
[2016-08-22] MEDS: chlordiazePOXIDE 25 MG CAP PO SCH (08:17)
[2016-08-22] MEDS ORDERED: NS 250 ML IV ONE (15:30)
--- NOTE | 2016-08-22 15:51 | HOSPPROG ---
Hospitalist Progress Note Assessment/Plan: #Severe alcohol withdrawal: now outside for window for DTs. 25 mg for next 5 days then stop. (08/26) #Chronic toxic encephalopathy: suspect Wernicke's. Trial high-dose IV thiamine. Conts to improve daily. Patient has appointed his daughter as MDPOA and she is agreeable. He would benefit from a long-term care facility. Case management working on facilities #Acute hypoxemic resp failure: resolved #Aspiration PNA: completed course of abx #COPD: cont nebs. #Chronic back pain: PRN oxycodone #thrombocytopenia: resolved. Due to Etoh #Deconditioning: PT/OT #Diet: regular #DVT ppx: Lovenox #Disp: awaiting placement with guidance of daughter. Time spent on visit: 45 min in which 30 min spent talking with daughter about clinical status, discharge planning Subjective: felt dizzy this morning Objective: Vital Signs Temp Pulse Resp BP Pulse Ox 36.9 C 85 12 104/72 89 L 08/22/16 15:49 08/22/16 15:49 08/22/16 15:49 08/22/16 15:49 08/22/16 15:49 Laboratory Results 08/19/16 04:05 08/21/16 04:55 08/21/16 08/22/16 08/23/16 05:59 05:59 05:59 Intake Total 1400 1190 Output Total 575 1300 Balance 825 -110 - Physical Exam Constitutional: no apparent distress, cachectic Eyes: PERRL Ears, Nose, Mouth, Throat: moist mucous membranes Cardiovascular: regular rate and rhythym, no murmur, rub, or gallop Respiratory: no respiratory distress Gastrointestinal: normoactive bowel sounds Genitourinary: no bladder fullness Skin: warm Musculoskeletal: full muscle strength, generalized weakness Neurologic: AAOx3, CN II-XII Intact, facial droop (no facial droop) Psychiatric: depressed, flat affect ICD10 Worksheet Patient Problems: Problems Problem Status Onset Pneumonia Acute
[2016-08-22] MEDS: AMITRIPTYLINE HCL 100 MG TAB PO SCH (20:40)
[2016-08-22] MEDS: PATCH REMOVAL 1 EA PATCH TD SCH (20:41)
[2016-08-22] MEDS: THIAMINE HCL 500 MG in NS 100 ML IV SCH (23:15)
[2016-08-23] MEDS: VODKA 50 ML BOTTLE PO SCH ×3 (05:53→18:12)
[2016-08-23] MEDS: THIAMINE HCL 500 MG in NS 100 ML IV SCH ×2 (05:53→14:09)
--- NOTE | 2016-08-23 08:20 | HOSPPROG ---
Hospitalist Progress Note Assessment/Plan: Patient is a 56-year-old male with a history of chronic pain syndrome with chronic opioid dependency, tobacco use, alcohol use who presents to the ED with complaint of shortness of breath and cough. Symptoms Patient started about 2 weeks prior to his admission with cough and occasional dyspnea on exertion. On admission it was noted that he had O2 sats in the 70%. #Severe alcohol withdrawal: on Vodka + Librium 25 mg for next 4 days then stop. (08/26) had been on Precedex trip in the ICU patient is adamant he does not have issues with alcohol says he drinks a pint at night to help w insomnia #Chronic toxic encephalopathy: suspect Wernicke's. On high-dose IV thiamine w improvement. #Acute hypoxemic resp failure: resolved #Aspiration PNA: treated #COPD: cont nebs. #Chronic back pain: PRN oxycodone #thrombocytopenia: resolved. #Deconditioning: PT/OT #Diet: regular #DVT ppx: Lovenox #Disp: awaiting placement. Patient has appointed his daughter as MDPOA and she is agreeable. He would benefit from a long-term care facility. Case management working on facilities Subjective: Patient says he has chronic pain from his neck to his low back area. Objective: Vital Signs Temp Pulse Resp BP Pulse Ox 36.7 C 85 16 104/71 94 08/23/16 04:00 08/23/16 04:00 08/23/16 04:00 08/23/16 04:00 08/23/16 04:00 Laboratory Results 08/19/16 04:05 08/21/16 04:55 08/22/16 08/23/16 08/24/16 05:59 05:59 05:59 Intake Total 1190 250 Output Total 1300 400 Balance -110 -150 - Physical Exam Constitutional: no apparent distress, appears nourished Eyes: PERRL Ears, Nose, Mouth, Throat: hearing normal Cardiovascular: regular rate and rhythym Respiratory: no respiratory distress Skin: warm Musculoskeletal: full muscle strength Neurologic: other (alert and oriented to himself and place/ wants to go get his van) Psychiatric: interacting appropriately, poor insight ICD10 Worksheet Patient Problems: Problems Problem Status Onset Pneumonia Acute
[2016-08-23] MEDS: chlordiazePOXIDE 25 MG CAP PO SCH (09:28)
[2016-08-23] MEDS: PANTOPRAZOLE SODIUM 40 MG TAB PO SCH (09:28)
[2016-08-23] MEDS: morphINE SR 30 MG TAB PO SCH ×2 (09:28→20:33)
[2016-08-23] MEDS: ENOXAPARIN 40 MG/0.4 ML SYR SC SCH (09:29)
[2016-08-23] MEDS: NICOTINE 14 MG/24 HR PATCH TD SCH (09:31)
[2016-08-23] MEDS: oxyCODONE IR 5 MG TAB PO PRN (09:34)
[2016-08-23] MEDS: LIDOCAINE 5% 1 EA PATCH TD SCH (09:39)
[2016-08-23] MEDS: PREGABALIN 100 MG CAP PO SCH ×3 (09:40→20:33)
[2016-08-23 15:36] VITALS: RESP 16
[2016-08-23] MEDS: THIAMINE HCL 100 MG TAB PO SCH ×2 (16:01→20:32)
[2016-08-23] MEDS: AMITRIPTYLINE HCL 100 MG TAB PO SCH (20:33)
[2016-08-23] MEDS: PATCH REMOVAL 1 EA PATCH TD SCH (20:34)
[2016-08-24] MEDS: VODKA 50 ML BOTTLE PO SCH ×2 (00:41→06:14)
[2016-08-24] MEDS: PREGABALIN 100 MG CAP PO SCH ×2 (09:09→17:02)
[2016-08-24] MEDS: chlordiazePOXIDE 25 MG CAP PO SCH (09:09)
[2016-08-24] MEDS: morphINE SR 30 MG TAB PO SCH (09:10)
[2016-08-24] MEDS: PANTOPRAZOLE SODIUM 40 MG TAB PO SCH (09:10)
[2016-08-24] MEDS: NICOTINE 14 MG/24 HR PATCH TD SCH (09:10)
[2016-08-24] MEDS: LIDOCAINE 5% 1 EA PATCH TD SCH (09:13)
[2016-08-24] MEDS: ENOXAPARIN 40 MG/0.4 ML SYR SC SCH (09:13)
[2016-08-24] MEDS: oxyCODONE IR 5 MG TAB PO PRN (09:19)
[2016-08-24] MEDS: THIAMINE HCL 100 MG TAB PO SCH ×2 (09:23→17:03)
--- NOTE | 2016-08-24 09:27 | HOSPPROG ---
Hospitalist Progress Note Assessment/Plan: Patient is a 56-year-old male with a history of chronic pain syndrome with chronic opioid dependency, tobacco use, alcohol use who presents to the ED with complaint of shortness of breath and cough. Symptoms Patient started about 2 weeks prior to his admission with cough and occasional dyspnea on exertion. On admission it was noted that he had O2 sats in the 70%. #Severe alcohol withdrawal: on Vodka + Librium 25 mg for next 4 days then stop. (08/26) had been on Vodka q 6, decreased dose to q 8 had been on Precedex trip in the ICU patient is adamant he does not have issues with alcohol says he drinks a pint at night to help w insomnia #Chronic toxic encephalopathy: suspect Wernicke's. treated w thiamine. much improved #Acute hypoxemic resp failure: resolved #Aspiration PNA: treated #COPD: cont nebs. #Chronic back pain: PRN oxycodone #thrombocytopenia: resolved. #Deconditioning: PT/OT #Diet: regular #DVT ppx: Lovenox #Disp: I spent time with Jose L talking today. Overall, he appears to have decisional capacity. He knows he came to the hospital and that he was ill/ he said he was admitted on August 11 and knew he needed medical help. Based on our discussion today, he said he would call for help if he were sick again. He appreciates that he is on narcotics/ due to this, he hasn't driven in 2 + years. He is able to tell me the medications that impact his ability to think clearly. He realizes he could harm someone if he did drive while under the influence of narcotics and alcohol. He has a friend who gets him meals. He does not think he has a problem with alcohol and is not insightful with this. He gets angry if anyone thinks he may have any type of alcohol issue and wants this taken off his chart. Overall, has reasoning skills/ knows he needs to take care of his dog/ has someone caring for his dog. Will ask Ethics to re-evaluate in addition. Called and updated patient's daughter about her dad's condition. She is concerned because she said his friends are bringing him alcohol in the hospital. (will ask Nursing staff to monitor) Subjective: Jose L has no complaints. Objective: Vital Signs Temp Pulse Resp BP Pulse Ox 36.8 C 96 16 110/79 91 L 08/24/16 08:00 08/24/16 08:00 08/24/16 08:00 08/24/16 08:00 08/24/16 08:00 Laboratory Results 08/19/16 04:05 08/21/16 04:55 08/23/16 08/24/16 08/25/16 05:59 05:59 05:59 Intake Total 250 475 Output Total 400 Balance -150 475 - Physical Exam Constitutional: no apparent distress, not in pain, chronically ill appearing Eyes: PERRL Ears, Nose, Mouth, Throat: hearing normal Cardiovascular: regular rate and rhythym Respiratory: no respiratory distress Skin: warm Musculoskeletal: full muscle strength Neurologic: AAOx3 Psychiatric: interacting appropriately, not encephalopathic ICD10 Worksheet Patient Problems: Problems Problem Status Onset Pneumonia Acute
[2016-08-24] MEDS ORDERED: VODKA 50 ML BOTTLE PO SCH (14:00)
[2016-08-24 16:32] VITALS: BP 106/78; PULSE 95; TEMP 98.4; O2SAT 90
--- NOTE | 2016-08-24 21:54 | HOSPPROG ---
Hospitalist Progress Note Assessment/Plan: Called to see patient by RN as patient wanted to be discharged. Per day [employer] ( Keshawn) and chart he is not ready for discharge. Reviewed notes from today which document his decisional capacity. I discussed risks of leaving AMA including , but he desired to leave. Objective: Vital Signs Temp Pulse Resp BP Pulse Ox 36.9 C 95 16 106/78 90 L 08/24/16 16:00 08/24/16 16:00 08/24/16 16:00 08/24/16 16:00 08/24/16 16:00 Laboratory Results 08/19/16 04:05 08/21/16 04:55 08/23/16 08/24/16 08/25/16 05:59 05:59 05:59 Intake Total 250 475 250 Output Total 400 Balance -150 475 250 ICD10 Worksheet Patient Problems: Problems Problem Status Onset Pneumonia Acute
--- NOTE | 2016-08-25 10:10 | GDS ---
[f rep st] DISCHARGE SUMMARY DISCHARGE DIAGNOSES: 1. Severe alcohol withdrawal. 2. Chronic toxic encephalopathy. 3. Acute hypoxemic respiratory failure. 4. Aspiration pneumonia. 5. Chronic obstructive pulmonary disease. 6. Chronic back pain on continuous chronic opiates. 7. Thrombocytopenia. 8. Deconditioning. CONSULTATIONS: During his stay: 1. Dr. Cornel Ramos. 2. Ethics team. BRIEF HISTORY: The patient is a 56-year-old male, who has a history of chronic alcohol abuse, as well as tobacco abuse. He has chronic pains and is on opiates. He was admitted because he became increasingly short of breath and weaker. He was unable to eat much. He drinks approximately a pint of vodka a day, but when he was ill, he was drinking about half this amount. A friend found him much weaker and more short of breath. EMS was called and he was taken to the emergency department. Oxygen levels in the emergency room were in the 70s. He was admitted and placed in the intensive care unit because of severe alcohol withdrawal. He was also treated for likely aspiration pneumonia. Initially was treated with Invanz and azithromycin. Throughout his stay he improved. There was concern that he had underlying Wernicke's. He was treated with thiamine. There was much concern during his stay that he was not decisional, and this waxed and waned. During his stay, on August 24, he was evaluated by myself and by the ethics team. It was noted that he had decisional capacity by myself, and by the physician evaluating him. The recommendation for him was to get help and rehabilitation. This was to be done prior to discharge, but the patient left last night AMA, without any further plans. HOSPITAL COURSE: Per problem: 1. Severe alcohol withdrawal. He was treated with vodka and Librium. He says he drinks a pint of alcohol a night to help with his insomnia. He does not see that he has a problem with alcohol use. 2. Chronic toxic encephalopathy. He was markedly improved. There was concern that he had Wernicke. He was treated with high-dose thiamine. 3. Acute hypoxemic respiratory failure. This resolved. 4. Aspiration pneumonia. This was treated. 5. COPD on nebs. 6. Chronic back pain on continuous opioids. His home medications have been resumed. 7. Thrombocytopenia, resolved. 8. Deconditioning, PT and OT. DISCHARGE INSTRUCTIONS: None given, patient had left AMA. /[id number]/MODL MTDD
== END 2016-08-24 18:00 | disposition left against medical advice (07) | DRG 189 ==
LOC: EDUNIT# → OBSVTOIN 23:30 → F2N 08-12 00:17 → F3E 08-21 19:55
PROVIDERS: ADMIT Internal Medicine; ATTEND Internal Medicine
DX: J96.01 Acute respiratory failure with hypoxia (principal); J69.0 Pneumonitis due to inhalation of food and vomit; G92 Toxic encephalopathy; F10.239 Alcohol dependence with withdrawal, unspecified; F11.20 Opioid dependence, uncomplicated; J44.1 Chronic obstructive pulmonary disease with (acute) exacerbation; G89.29 Other chronic pain; D69.1 Qualitative platelet defects; F17.200 Nicotine dependence, unspecified, uncomplicated; Y90.8 Blood alcohol level of 240 mg/100 ml or more; F10.229 Alcohol dependence with intoxication, unspecified; K70.10 Alcoholic hepatitis without ascites
CPT/HCPCS: 80307; 92507-GN; 92523-GN; 92610-GN; 96365; 97110-GP; 97116-GP; 97162-GP; 97165-GO; 97530-GO; 97535-GO; G0480; J0456; J0610; J0696; J1335; J1650; J2060; J3411; J3475

== ENCOUNTER 2016-09-11 14:57 | Emergency (ER) | payer MEDICAID ==
[2016-09-11] MEDS ORDERED: ALBUTEROL 3 ML DEYVIAL IH ONE (15:57)
[2016-09-11] MEDS ORDERED: methylPREDNISolone SOD SUCC 125 MG/2 ML VIAL IVP ONE (15:57)
[2016-09-11] MEDS ORDERED: IPRATROPIUM/ALBUTEROL 3 ML DEYVIAL IH ONE (15:57)
--- NOTE | 2016-09-11 16:29 | EDPHY ---
H & P Time Seen by Provider: 09/11/16 15:39 HPI/ROS: CHIEF COMPLAINT: "I don't feel good" HISTORY OF PRESENT ILLNESS: Patient was discharged from the hospital on August 24 after being hospitalized in the ICU for severe alcohol withdrawal and aspiration pneumonia. He continues to drink alcohol and smokes cigarettes. He presents today saying he is not feeling good manifested by worsening shortness of breath and general malaise for the past month. This is not associated with chest pain. He has a chronic cough which is unchanged. He says symptoms are moderate and not better or worse with anything. REVIEW OF SYSTEMS: Eye: no change in vision ENT: no sore throat Cardiac: no chest pain or syncope Pulmonary: HPI Abdomen: Decreased appetite with some nausea Musculoskeletal: Chronic back pain, unchanged Skin: no rash Neuro: no headache, says he has generalized weakness Constitutional: no fever : no urinary symptoms A comprehensive 10 point review of systems is otherwise negative aside from elements mentioned in the history of present illness. PAST MEDICAL HISTORY: Discharge summary dated 08/1916 personally reviewed includes alcoholism, aspiration pneumonia, chronic back pain, COPD. Social history: Continues to smoke and drink alcohol General Appearance: Alert and conversant, cooperative. Eyes: No scleral icterus. ENT, Mouth: Normal mucous membranes. Respiratory: Bilateral wheezing and prolonged expiratory phase but no focal lung sounds and speaks in full sentences. Cardiovascular: Regular rate and rhythm. Gastrointestinal: Abdomen is soft and non tender. Neurological: Alert and oriented x3. Normally conversant. Face symmetric, normal movement and sensation in all extremities. Not tremulous. Not confused. Skin: Warm and dry, no rashes. Musculoskeletal: No peripheral edema and no joint swelling. Psychiatric: Not agitated. Emergency Department course/MDM: DuoNeb, albuterol neb, and IV Solu-Medrol 125 mg. Chest x-ray. 1801: Re-examined. Less wheezing. No pneumonia on chest x-ray. Patient has history of COPD but is 93% room air saturation on discharge. Home with prednisone prescription and use of his regular inhalers. Smoking Status: Current every day smoker Constitutional: Initial Vital Signs Temperature (C) 36.8 C 09/11/16 15:11 Heart Rate 88 09/11/16 15:11 Respiratory Rate 17 09/11/16 15:11 Blood Pressure 124/95 H 09/11/16 15:11 O2 Sat (%) 89 L 09/11/16 15:11 O2 Delivery Mode Room Air O2 (L/minute) 2 Allergies/Adverse Reactions: No Known Allergies Allergy (Verified 09/11/16 15:11) Home Medications: Medication Instructions Recorded AMITRIPTYLINE HCL [Amitriptyline 100 mg PO HS 08/22/15 100 mg] Lidocaine 5% [Lidoderm 5%] 1 ea TD DAILY 08/22/15 Pregabalin [LYRICA] 100 mg PO TID 08/22/15 Oxycodone Ir 20mg 1 tab PO QID PRN 08/12/16 morphINE SR [MS Contin/Oramorph SR 30 mg PO BID 08/12/16 30 mg (*)] predniSONE [prednisone 20mg (RX)] 20 mg PO Q12 #15 tab 09/11/16 Medical Decision Making - Diagnostics EKG Interpretation: 12-lead EKG interpreted by me; official reading is in trace master. My interpretation is normal, sinus rhythm, no ischemic changes. Imaging Results: Imaging Impressions Chest X-Ray 09/11/16 15:58 Impression: Mild airways disease and minimal bibasilar atelectasis. No pneumonia. Differential Diagnosis: Differential diagnosis considered for shortness of breath including but not limited to pulmonary infectious process, COPD, asthma, pulmonary embolus and congestive heart failure. - Data Points Laboratory Results: Laboratory Results 09/11/16 16:29 09/11/16 16:29 09/11/16 09/11/16 16:29 16:29 WBC 5.58 10^3/uL 10^3/uL (3.80-9.50) RBC 5.38 10^6/uL 10^6/uL (4.40-6.38) Hgb 17.2 g/dL g/dL (13.7-17.5) Hct 49.3 % % (40.0-51.0) MCV 91.6 fL fL (81.5-99.8) MCH 32.0 pg pg (27.9-34.1) MCHC 34.9 g/dL g/dL (32.4-36.7) RDW 13.1 % % (11.5-15.2) Plt Count 79 10^3/uL L 10^3/uL (150-400) MPV 9.1 fL fL (8.7-11.7) Neut % (Auto) 39.6 % % (39.3-74.2) Lymph % (Auto) 53.4 % H % (15.0-45.0) [place] % (Auto) 5.7 % % (4.5-13.0) Eos % (Auto) 0.7 % % (0.6-7.6) Baso % (Auto) 0.2 % L % (0.3-1.7) Nucleat RBC Rel Count 0.0 % % (0.0-0.2) Absolute Neuts (auto) 2.21 10^3/uL 10^3/uL (1.70-6.50) Absolute Lymphs (auto) 2.98 10^3/uL 10^3/uL (1.00-3.00) Absolute Monos (auto) 0.32 10^3/uL 10^3/uL (0.30-0.80) Absolute Eos (auto) 0.04 10^3/uL 10^3/uL (0.03-0.40) Absolute Basos (auto) 0.01 10^3/uL L 10^3/uL (0.02-0.10) Absolute Nucleated RBC 0.00 10^3/uL 10^3/uL (0-0.01) Immature Gran % 0.4 % % (0.0-1.1) Immature Gran # 0.02 10^3/uL 10^3/uL (0.00-0.10) Sodium 144 mEq/L mEq/L (134-144) Potassium 4.0 mEq/L mEq/L (3.5-5.2) Chloride 104 mEq/L mEq/L (97-110) Carbon Dioxide 25 mEq/l mEq/l (22-31) Anion Gap 15 mEq/L mEq/L (8-16) BUN 9 mg/dL mg/dL (7-23) Creatinine 0.6 mg/dL L mg/dL (0.7-1.3) Estimated GFR > 60 Glucose 109 mg/dL H mg/dL (70-100) Calcium 9.0 mg/dL mg/dL (8.5-10.4) Ethyl Alcohol 364 mg/dL H mg/dL (0-10) Medications Given: Discontinued Medications Albuterol (Proventil Neb) 3 ml IH EDNOW ONE Stop: 09/11/16 15:58 Last Admin: 09/11/16 16:00 Dose: 3 ml Albuterol/Ipratropium (Duoneb) 3 ml IH EDNOW ONE Stop: 09/11/16 15:58 Last Admin: 09/11/16 16:00 Dose: 3 ml Methylprednisolone Sodium Succinate (Solu-Medrol) 125 mg IVP EDNOW ONE Stop: 09/11/16 15:58 Last Admin: 09/11/16 16:48 Dose: 125 mg Departure - Departure Disposition: Home, Routine, Self-Care Clinical Impression: Chronic obstructive pulmonary disease with acute exacerbation Condition: Good Instructions: COPD (Chronic Obstructive Pulmonary Disease) (ED) Additional Instructions: Use your inhalers as prescribed. Referrals: Itzel Bernal [Primary Care Provider] - As per Instructions Prescriptions: predniSONE [prednisone 20mg (RX)] 20 mg PO Q12 #15 tab
--- NOTE | 2016-09-11 16:33 | CPEKG ---
Heart Rate: 84 RR Interval: 714 P-R Interval: 148 QRSD Interval: 88 QT Interval: 388 QTC Interval: 459 P Ida: 38 QRS Ida: 13 T Wave Ida: 51 EKG Severity - NORMAL ECG - EKG Impression: SINUS RHYTHM Electronically Signed By: Geoff Mcginnis 11-Sep-2016 16:39:53
[2016-09-11 16:46] LABS: % IMMATURE GRANULYOCYTES 0.4 % (0.0-1.1); ABSOLUTE IMMATURE GRANULOCYTES 0.02 10^3/uL (0.00-0.10); ADD DIFF? NO; ADD MORPH? NO; ADD SCAN? NO; ATYPICAL LYMPHOCYTE FLAG 20 (0-99); FRAGMENT RBC FLAG 0 (0-99); HEMATOCRIT 49.3 % (40.0-51.0); HEMOGLOBIN 17.2 g/dL (13.7-17.5); LEFT SHIFT FLG 0 (0-99); LIPEMIA HEMOLYSIS FLAG 90 (0-99); MEAN CELL HEMOGLOBIN CONCENTR. 34.9 g/dL (32.4-36.7); MEAN CELL VOLUME 91.6 fL (81.5-99.8); MEAN PLATELET VOLUME 9.1 fL (8.7-11.7); PLATELET CLUMPS FLAG 0 (0-99); PLATELET COUNT 79 10^3/uL (150-400); RED BLOOD CELL COUNT 5.38 10^6/uL (4.40-6.38); RED CELL DISTRIBUTION WIDTH 13.1 % (11.5-15.2)
[2016-09-11 17:09] LABS: ANION GAP 15 mEq/L (8-16); CARBON DIOXIDE 25 mEq/l (22-31); CHLORIDE 104 mEq/L (97-110); CREATININE 0.6 mg/dL (0.7-1.3); GLOMERULAR FILTRATION RATE > 60; GLUCOSE 109 mg/dL (70-100); SODIUM 144 mEq/L (134-144)
[2016-09-11 17:21] LABS: ETHANOL SERUM 364 mg/dL (0-10)
[2016-09-11 18:08] VITALS: BP 106/79; PULSE 75; RESP 15; TEMP 99; O2SAT 93
== END 2016-09-11 18:07 | disposition home or self-care (01) ==
LOC: EDUNIT#
DX: J45.901 Unspecified asthma with (acute) exacerbation (principal); F17.210 Nicotine dependence, cigarettes, uncomplicated
CPT/HCPCS: 96374; G0480